=== PATIENT | female | born 1960 | race Hispanic/Latino ===

== ENCOUNTER 2018-01-05 17:46 | Emergency (ER) | payer MEDICARE, OTHER ==
[~2018-01-05] VITALS: Ht 167.6 cm; Wt 92.1 kg
[~2018-01-05 17:46] MED LIST: ASPIRIN EC81 MG PO; ATORVASTATIN CA20 MG PO; ATROVENT HFA12.9 GM INH; COLACE100 MG PO; CYCLOBENZAPRINE10 MG PO; GABAPENTIN100 MG PO; GABAPENTIN400 MG PO; GUAIFENESIN-DM S5 ML PO; IBUPROFEN400 MG PO; LEVAQUIN500 MG PO; LISINOPRIL10 MG PO; LORATADINE10 MG PO; LYRICA75 MG PO; NICODERM CQ1 EAC2 TOP; NOVOLIN N100 UNIT/1 SC; OMEPRAZOLE40 MG; PREDNISONE20 MG PO; ROPINIROLE HC0.25 MG PO; SENNA LAXATIVE8.6 MG PO; TESSALON PERLE100 MG PO; TRAZODONE HCL100 MG PO; ULTRAM50 MG PO
[2018-01-05 21:43] LABS: ALBUMIN 3.7 g/dL (3.5-5.0); ALBUMIN/GLOBULIN RATIO 0.8 (0.8-2.0); ANION GAP 17.8 mmol/L (8-16); CALCIUM 9.2 mg/dL (8.4-10.2); CREATININE, SERUM 0.97 mg/dL (0.57-1.11); POTASSIUM 3.8 mmol/L (3.5-5.1)
[2018-01-05] MEDS ORDERED: HYDROMORPHONE 1MG/1ML INJ IV STA (22:23)
[2018-01-05] MEDS ORDERED: ONDANSETRON HCL INJ 2 MG/ML VIAL IV STA (22:23)
[2018-01-05] MEDS ORDERED: CLINDAMYCIN PHOS 900MG/ D5W 50 50 ML IV ONE (22:30)
[2018-01-05] MEDS ORDERED: INSULIN REGULAR, HUMAN 100 UNIT/1 ML 3ML VIAL IV ONE (22:30)
[2018-01-05] MEDS ORDERED: SODIUM CHLORIDE 0.9% 1000ML 1,000 ML IV SCH (22:30)
--- NOTE | 2018-01-05 22:30 | Diagnostic Imaging Report ---
FOOT LEFT COMPLETE, LOWER LEG RIGHT Comparison: None Clinical history: Left foot and right leg pain, concern for osteomyelitis Findings: Left foot: Mild sclerosis of the base of the first proximal phalanx which may be degenerative. No acute fracture or dislocation. No evidence of bony destruction or focal soft tissue abnormality. Right tibia and fibula: No acute fracture or dislocation. No bony destruction. Minimal diffuse soft tissue swelling. Impression: 1. No radiographic evidence of acute osteomyelitis. There is ongoing clinical concern, recommend nonemergent MRI with and without IV contrast. Signed by: Dr Merlene Hunt MD on 01/05/2018 10:26 PM
[2018-01-05 22:40] LABS: BASOPHILS # (AUTO) 0.1 (0.0-0.1); BASOPHILS % 0.8 % (0.0-1.0); EOSINOPHILS # (AUTO) 0.2 (0.0-0.4); EOSINOPHILS % 2.1 % (0.0-6.0); HEMATOCRIT 44.6 % (34.2-44.1); HEMOGLOBIN 15.5 g/dL (12.0-16.0); LYMPHOCYTES % 32.7 % (18.0-39.1); MEAN CORPUSCULAR HEMOGLOBIN 31.1 pg (28-32); MEAN CORPUSCULAR HGB CONC 34.8 g/dL (31-35); MEAN CORPUSCULAR VOLUME 89.4 fL (81-99); MONOCYTES # (AUTO) 0.4 (0.2-0.8); MONOCYTES % 4.4 % (4.4-11.3); NEUTROPHILS # (AUTO) 5.4 (2.1-6.9); NEUTROPHILS % 59.6 % (38.7-80.0); PLATELET COUNT 166 x10e3/uL (140-360); RED BLOOD COUNT 4.99 x10e6/uL (3.6-5.1); RED CELL DISTRIBUTION WIDTH 12.9 % (11.7-14.4)
[2018-01-05 22:50] LABS: INR 0.98; PROTHROMBIN TIME 12.2 seconds (11.9-14.5)
[2018-01-06 01:03] VITALS: BP 118/74
== END 2018-01-06 01:13 | disposition home or self-care (01) ==
LOC: ER 17:46
DX: M25.571 Pain in right ankle and joints of right foot (principal); L03.115 Cellulitis of right lower limb; R26.2 Difficulty in walking, not elsewhere classified; E11.621 Type 2 diabetes mellitus with foot ulcer; L97.429 Non-pressure chronic ulcer of left heel and midfoot with unspecified severity; L97.319 Non-pressure chronic ulcer of right ankle with unspecified severity
CPT/HCPCS: 36415; 73590; 73630; 80053; 82948; 85025; 85610; 85730; 87040; 99284; J1170; J2405; J7030

== ENCOUNTER 2018-09-01 18:08 | Inpatient (IN) | payer MEDICARE ==
[~2018-09-01] VITALS: Ht 167.6 cm; Wt 94.4 kg
[2018-09-01] MEDS ORDERED: HYDROMORPHONE 1MG/1ML INJ IV STA (21:15)
[2018-09-01] MEDS ORDERED: SODIUM CHLORIDE 0.9% 1000ML 1,000 ML IV STA (21:15)
[2018-09-01] MEDS ORDERED: ONDANSETRON HCL INJ 2 MG/ML VIAL IV STA (21:15)
[2018-09-01] MEDS ORDERED: PANTOPRAZOLE 40 MG 10ML VIAL IV STA (21:15)
[2018-09-01 21:43] LABS: BASOPHILS # (AUTO) 0.1 (0.0-0.1); BASOPHILS % 0.6 % (0.0-1.0); EOSINOPHILS # (AUTO) 0.3 (0.0-0.4); EOSINOPHILS % 2.2 % (0.0-6.0); HEMATOCRIT 40.2 % (34.2-44.1); HEMOGLOBIN 13.5 g/dL (12.0-16.0); LYMPHOCYTES # (AUTO) 2.9 (1.0-3.2); LYMPHOCYTES % 20.3 % (18.0-39.1); MEAN CORPUSCULAR HEMOGLOBIN 31.3 pg (28-32); MEAN CORPUSCULAR HGB CONC 33.6 g/dL (31-35); MEAN CORPUSCULAR VOLUME 93.1 fL (81-99); MONOCYTES # (AUTO) 0.6 (0.2-0.8); MONOCYTES % 4.4 % (4.4-11.3); NEUTROPHILS # (AUTO) 10.2 (2.1-6.9); NEUTROPHILS % 71.9 % (38.7-80.0); PLATELET COUNT 244 x10e3/uL (140-360); RED BLOOD COUNT 4.32 x10e6/uL (3.6-5.1)
[2018-09-01 21:54] LABS: INR 0.87; PROTHROMBIN TIME 12.6 seconds (11.9-14.5)
[2018-09-01 21:55] LABS: PARTIAL THROMBOPLASTIN TIME 29.2 seconds (23.8-35.5)
[2018-09-01] MEDS ORDERED: HYDROMORPHONE 2MG/ML 2 MG/ML ML ONE (21:56)
[2018-09-01 22:04] LABS: ALANINE AMINOTRANSFERASE 13 IU/L (0-55); ALBUMIN 3.2 g/dL (3.5-5.0); ALBUMIN/GLOBULIN RATIO 0.6 (0.8-2.0); ALKALINE PHOSPHATASE 91 IU/L (40-150); ANION GAP 15.3 mmol/L (8-16); BLOOD UREA NITROGEN 18 mg/dL (7-26); BUN/CREATININE RATIO 21 (6-25); CALCIUM 9.5 mg/dL (8.4-10.2); CARBON DIOXIDE 27 mmol/L (22-29); CHLORIDE 98 mmol/L (98-107); CREATINE KINASE 37 IU/L (29-168); CREATININE, SERUM 0.85 mg/dL (0.57-1.11); EST GLOMERULAR FILTRATION RATE > 60 ML/MIN (60-); GLUCOSE 319 mg/dL (74-118); MAGNESIUM 1.9 MG/DL (1.3-2.1); POTASSIUM 3.3 mmol/L (3.5-5.1); SODIUM 137 mmol/L (136-145)
[2018-09-01 22:14] LABS: B-TYPE NATRIURETIC PEPTIDE2 98.1 pg/mL (0-100)
--- NOTE | 2018-09-01 23:11 | Diagnostic Imaging Report ---
EXAM: CHEST SINGLE (PORTABLE), AP 1 view INDICATION: Second toe necrosis COMPARISON: None FINDINGS: LINES/TUBES: None LUNGS: No consolidations or edema. PLEURA: No effusions or pneumothorax. HEART AND MEDIASTINUM: Normal size and contour. BONES AND SOFT TISSUES: No acute findings. IMPRESSION: No acute thoracic abnormality. Signed by: Dr. Analia Alicea M.D. on 09/01/2018 11:08 PM
--- NOTE | 2018-09-01 23:22 | Diagnostic Imaging Report ---
EXAM: LOWER LEG RIGHT, AP and lateral INDICATION: Right second toe necrosis COMPARISON: None FINDINGS: BONES: No acute fractures. JOINTS: No malalignment. SOFT TISSUES: Normal IMPRESSION: Normal appearance of right tibia and fibula. Signed by: Dr. Analia Alicea M.D. on 09/01/2018 11:18 PM
--- NOTE | 2018-09-01 23:23 | Diagnostic Imaging Report ---
EXAM: FOOT RIGHT COMPLETE, AP, lateral and oblique INDICATION: Second toe necrosis COMPARISON: None FINDINGS: BONES: No acute fractures. JOINTS: No malalignment. SOFT TISSUES: Soft tissue swelling of the second digit. IMPRESSION: No radiographic evidence of osteomyelitis. Soft tissue swelling of the second digit. Signed by: Dr. Analia Alicea M.D. on 09/01/2018 11:20 PM
[2018-09-01] MEDS ORDERED: POTASSIUM CHLORIDE 20 MEQ TAB CR PO STA (23:53)
[2018-09-02] VITALS (8 sets, daily range): BP systolic 101–133; BP diastolic 57–71
[2018-09-02] MEDS ORDERED: DEXTROSE 50% SYRINGE 50 ML IV PRN (00:30)
[2018-09-02] MEDS ORDERED: ASPIRIN 81 MG CHEW TAB PO ONE (00:45)
[2018-09-02] MEDS ORDERED: HEPARIN SOD (PORCINE) 5,000 UNIT/ML VIAL IV ONE (00:45)
[2018-09-02] MEDS: PIPER-TAZ 3.375 GM 50 ML IV SCH ×4 (01:32→17:05)
[2018-09-02] MEDS: HEPARIN 25,000U/0.45% NS 250ML 25,000 UNIT in SODIUM CHLORIDE 0.9% 250ML 0 ML IV SCH (01:53)
[2018-09-02] MEDS: ONDANSETRON HCL INJ 2 MG/ML VIAL IV PRN ×2 (02:30→06:34)
[2018-09-02] MEDS: HYDROMORPHONE 2MG/ML 2 MG/ML ML IV PRN ×5 (02:30→21:05)
[2018-09-02] MEDS: VANCOMYCIN 1GM/NS 250 ML 250 ML IV SCH ×3 (02:46→21:15)
[2018-09-02] MEDS ORDERED: SODIUM CHLORIDE 0.9% 250ML 250 ML ONE (06:06)
[2018-09-02 06:53] LABS: BASOPHILS # (AUTO) 0.1 (0.0-0.1); BASOPHILS % 0.5 % (0.0-1.0); EOSINOPHILS # (AUTO) 0.4 (0.0-0.4); EOSINOPHILS % 3.2 % (0.0-6.0); HEMATOCRIT 35.5 % (34.2-44.1); HEMOGLOBIN 12.1 g/dL (12.0-16.0); LYMPHOCYTES # (AUTO) 3.3 (1.0-3.2); LYMPHOCYTES % 29.9 % (18.0-39.1); MEAN CORPUSCULAR HEMOGLOBIN 32.2 pg (28-32); MEAN CORPUSCULAR HGB CONC 34.1 g/dL (31-35); MEAN CORPUSCULAR VOLUME 94.4 fL (81-99); MONOCYTES # (AUTO) 0.4 (0.2-0.8); MONOCYTES % 3.9 % (4.4-11.3); NEUTROPHILS # (AUTO) 6.8 (2.1-6.9); PLATELET COUNT 189 x10e3/uL (140-360); RED BLOOD COUNT 3.76 x10e6/uL (3.6-5.1); RED CELL DISTRIBUTION WIDTH 13.9 % (11.7-14.4)
[2018-09-02 07:12] LABS: ALANINE AMINOTRANSFERASE 10 IU/L (0-55); ALBUMIN 2.6 g/dL (3.5-5.0); ALBUMIN/GLOBULIN RATIO 0.6 (0.8-2.0); ALKALINE PHOSPHATASE 77 IU/L (40-150); ANION GAP 10.7 mmol/L (8-16); BLOOD UREA NITROGEN 15 mg/dL (7-26); BUN/CREATININE RATIO 19 (6-25); CALCIUM 8.9 mg/dL (8.4-10.2); CARBON DIOXIDE 28 mmol/L (22-29); CHLORIDE 99 mmol/L (98-107); CREATININE, SERUM 0.81 mg/dL (0.57-1.11); EST GLOMERULAR FILTRATION RATE > 60 ML/MIN (60-); GLUCOSE 337 mg/dL (74-118); POTASSIUM 3.7 mmol/L (3.5-5.1); SODIUM 134 mmol/L (136-145)
[2018-09-02 07:27] LABS: CREATINE KINASE 30 IU/L (29-168)
[2018-09-02 07:54] LABS: CHOL/HDL RATIO 3.3 (3.0-3.6)
--- NOTE | 2018-09-02 08:26 | History and Physical ---
PRIMARY CARE PHYSICIAN: Physician at [facility]. CHIEF COMPLAINT: Right foot 2nd toe pain and color changes. HISTORY OF PRESENT ILLNESS: This is a 58-year-old woman with a history of diabetes mellitus and necrotic ulcer to the right midcalf, now developing purple and black changes to the right foot 2nd toe ongoing for the past 7-10 days with increased pain. She went to her primary care doctor on Friday, who gave her a penicillin intramuscular injection and oral amoxicillin and sent home, but due to worsening conditions and pain, the patient came to the hospital for further evaluation and management. PAST MEDICAL HISTORY: Diabetes mellitus, diabetes related peripheral vascular disease, congestive heart failure, type unknown, diabetic neuropathy, stroke with residual left-sided weakness and use of a cane, cigarette use, hyperlipidemia, degenerative joint disease of the lumbosacral spine, chronic pain disorder. PAST SURGICAL HISTORY: Back. ALLERGIES: PER ELECTRONIC MEDICAL RECORDS. FAMILY HISTORY/SOCIAL HISTORY: Patient is . She has 3 children. No alcohol or illicits. She continues to smoke cigarettes. MEDICATIONS: Per electronic medical record. REVIEW OF SYSTEMS: Denies any dizziness, chest pain, shortness of breath. Denies any fever, sweats, nausea, vomiting, diarrhea, headache, back pain. PHYSICAL EXAMINATION VITAL SIGNS: Have been reviewed. GENERAL: A tired-appearing woman resting in bed. HEENT: Anicteric. CARDIOVASCULAR: Normal S1 and S2. LUNGS: Moderate breath sounds. ABDOMEN: Soft, nontender and nondistended. EXTREMITIES: She has right foot with 2nd toe black in color and tender. She has dorsalis pedis pulses nonpalpable, but the foot is warm. SKIN: Dry. PSYCHIATRIC: Flat affect. NEUROLOGIC: Alert and oriented times 3. Moving all extremities. LABS: Reviewed. MEDICATIONS: Reviewed. ASSESSMENT AND PLAN: This is a 58-year-old woman with: 1. Gangrene of the right foot, 2nd toe secondary to diabetes. 2. Diabetes mellitus, type 2. 3. Peripheral vascular disease secondary to diabetes mellitus, type 2. 4. Hypertension. 5. Diabetic neuropathy. 6. Advanced chronic obstructive pulmonary disease. 7. History of stroke. 8. Continued cigarette use. 9. Obesity. 10. Ambulatory dysfunction secondary to stroke. PLAN 1. Continue broad-spectrum antibiotics of vancomycin and Zosyn. 2. Podiatry consultation. 3. Cardiovascular evaluation of the lower extremity. 4. Continue home medications. 5. Continue with heparin drip. 6. Use Pepcid while on heparin. 7. Obtain hemoglobin A1c and lipid panel. 8. Obtain sed rate and CRP. Job#: [id number] TATYANA
[2018-09-02] MEDS: ASPIRIN 81 MG ENTERIC COATED PO SCH (08:34)
[2018-09-02] MEDS: FAMOTIDINE 20 MG/2 ML VIAL IV SCH ×2 (08:34→21:15)
[2018-09-02] MEDS: GABAPENTIN 100 MG CAP PO SCH ×2 (08:34→17:05)
[2018-09-02] MEDS: LISINOPRIL 10 MG TAB PO SCH (08:35)
[2018-09-02] MEDS: ROPINIROLE HCL 0.25 MG TAB PO SCH (08:35)
[2018-09-02] MEDS: INSULIN REGULAR, HUMAN 100 UNIT/1 ML 3ML VIAL SQ SCH ×4 (09:01→21:00)
[2018-09-02] MEDS: DOCUSATE SODIUM 100 MG CAP PO SCH ×2 (09:33→17:05)
[2018-09-02 20:33] LABS: CREATINE KINASE 29 IU/L (29-168)
--- NOTE | 2018-09-02 20:33 | Consultation ---
DATE OF CONSULTATION: September 02, 2018 CARDIOLOGY CONSULTATION REASON FOR CONSULTATION: Right lower extremity gangrene and peripheral arterial disease. CHIEF COMPLAINT: My right foot hurts. HISTORY OF PRESENT ILLNESS: This is a 58-year-old female with history of diabetes and necrotic ulcer of the right foot. She also has history of peripheral arterial disease status post atherectomy and WOOD[employer] of her right lower extremity last year presenting with peripheral embolic changes of her right foot, 2 toe, for the past 7 to 10 days with worsening pain. PAST MEDICAL HISTORY: 1. Diabetes. 2. Peripheral arterial disease secondary to diabetes. 3. Congestive heart failure. 4. Neuropathy. 5. History of CVA. 6. Smoking. 7. Hyperlipidemia. 8. Chronic pain. FAMILY HISTORY: Denies family history of early CAD or sudden cardiac . SOCIAL HISTORY: Patient is a current smoker. No alcohol or illicit drug use. REVIEW OF SYSTEMS: Denies any dizziness, chest pain, shortness of breath, orthopnea or PND. Denies any fevers, chills, nausea, vomiting, diarrhea, headache or back pain. A 10-point review of systems is otherwise negative other than what is mentioned in history of present illness. PHYSICAL EXAMINATION: VITALS: Were reviewed as documented in the chart. CARDIOVASCULAR: Regular rate and rhythm. No murmurs, rubs or gallops. PMI is nondisplaced. Palpable carotid pulses. Palpable radial pulses. Lower extremity pulses are not palpable bilaterally. EXTREMITIES: Bilateral lower extremities with varicosities. They are warm to touch. The right foot middle toe is black and gangrenous. LUNGS: Clear to auscultation bilaterally. No respiratory distress. ABDOMEN: Obese, soft, nontender and nondistended. NEURO AND PSYCH: Alert and oriented to person, place and time. Normal affect. MEDICATIONS: Reviewed. LABORATORY DATA: Reviewed. IMAGING DATA: Reviewed. ASSESSMENT AND PLAN: 1. 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 2. Critical limb ischemia of the right foot, second toe. 3. Diabetic foot ulcer. 4. Diabetes. 5. Hypertension. 6. Cerebrovascular accident. 7. Obesity. 8. Hyperlipidemia. 9. Smoking. PLAN: Will obtain arterial Dopplers to assess circulation in the right lower extremity, likely needs repeat angiogram and possible intervention. Will use the arterial Dopplers to guide treatment. Wound care per podiatry. Antibiotics per primary team. Continue IV heparin and aspirin. Will plan for peripheral angiogram likely tomorrow. Please keep n.p.o. after midnight. Thank you for this consult. Will continue to follow. Job#: [id number] LOKI
[2018-09-02] MEDS ORDERED: NON-FORMULARY MEDICATION (Trazodone Hcl 100 MG) PO SCH (21:00)
[2018-09-02] MEDS: TRAZODONE HCL 50 MG TAB PO SCH (21:15)
[2018-09-03] VITALS (7 sets, daily range): BP systolic 105–133; BP diastolic 58–70
[2018-09-03] MEDS: PIPER-TAZ 3.375 GM 50 ML IV SCH ×4 (01:15→17:37)
[2018-09-03] MEDS: HYDROMORPHONE 2MG/ML 2 MG/ML ML IV PRN ×6 (01:16→21:42)
[2018-09-03] MEDS: HEPARIN 25,000U/0.45% NS 250ML 25,000 UNIT in SODIUM CHLORIDE 0.9% 250ML 0 ML IV SCH (02:45)
[2018-09-03 07:03] LABS: BASOPHILS # (AUTO) 0.1 (0.0-0.1); BASOPHILS % 0.5 % (0.0-1.0); EOSINOPHILS # (AUTO) 0.3 (0.0-0.4); EOSINOPHILS % 2.3 % (0.0-6.0); HEMATOCRIT 36.3 % (34.2-44.1); HEMOGLOBIN 12.1 g/dL (12.0-16.0); LYMPHOCYTES # (AUTO) 2.1 (1.0-3.2); LYMPHOCYTES % 18.5 % (18.0-39.1); MEAN CORPUSCULAR HEMOGLOBIN 31.5 pg (28-32); MEAN CORPUSCULAR HGB CONC 33.3 g/dL (31-35); MEAN CORPUSCULAR VOLUME 94.5 fL (81-99); MONOCYTES # (AUTO) 0.5 (0.2-0.8); MONOCYTES % 4.8 % (4.4-11.3); NEUTROPHILS # (AUTO) 8.2 (2.1-6.9); NEUTROPHILS % 73.3 % (38.7-80.0); PLATELET COUNT 208 x10e3/uL (140-360); RED BLOOD COUNT 3.84 x10e6/uL (3.6-5.1)
[2018-09-03 07:11] LABS: ANION GAP 14.8 mmol/L (8-16); BLOOD UREA NITROGEN 14 mg/dL (7-26); BUN/CREATININE RATIO 18 (6-25); CALCIUM 8.9 mg/dL (8.4-10.2); CARBON DIOXIDE 24 mmol/L (22-29); CHLORIDE 99 mmol/L (98-107); CREATININE, SERUM 0.77 mg/dL (0.57-1.11); EST GLOMERULAR FILTRATION RATE > 60 ML/MIN (60-); GLUCOSE 227 mg/dL (74-118); POTASSIUM 3.8 mmol/L (3.5-5.1); SODIUM 134 mmol/L (136-145)
[2018-09-03] MEDS: FAMOTIDINE 20 MG/2 ML VIAL IV SCH ×2 (08:56→21:42)
[2018-09-03] MEDS: VANCOMYCIN 1GM/NS 250 ML 250 ML IV SCH ×2 (08:56→21:42)
[2018-09-03] MEDS: ROPINIROLE HCL 0.25 MG TAB PO SCH (08:57)
[2018-09-03] MEDS: GABAPENTIN 100 MG CAP PO SCH ×2 (08:57→17:37)
[2018-09-03] MEDS: ASPIRIN 81 MG ENTERIC COATED PO SCH (08:57)
[2018-09-03] MEDS: DOCUSATE SODIUM 100 MG CAP PO SCH ×2 (08:57→17:37)
[2018-09-03] MEDS: LISINOPRIL 10 MG TAB PO SCH (08:57)
[2018-09-03] MEDS: INSULIN REGULAR, HUMAN 100 UNIT/1 ML 3ML VIAL SQ SCH ×4 (09:37→21:44)
[2018-09-03 10:31] LABS: BILIRUBIN,URINE NEGATIVE (NEGATIVE); CLARITY,URINE SL CLOUDY (CLEAR); COLOR,URINE YELLOW (YELLOW); LEUKOCYTE ESTERASE ,URINE NEGATIVE (NEGATIVE); NITRITE,URINE NEGATIVE (NEGATIVE); PROTEIN,URINE DIPSTICK 2+ (NEGATIVE)
[2018-09-03 10:32] LABS: KETONES,URINE NEGATIVE (NEGATIVE); URINE UROBILINOGEN 0.2 mg/dL (0.2 - 1)
[2018-09-03 10:54] LABS: EPITHELIAL CELLS,URINE FEW /LPF; RBC,URINE 0-5 /HPF (0-5); TRANSITIONAL EPI CELLS,URINE FEW
--- NOTE | 2018-09-03 13:59 | Consultation ---
DATE OF CONSULTATION: September 03, 2018 PODIATRY CONSULTATION REASON FOR CONSULTATION: Gangrenous digit right foot. HISTORY OF PRESENT ILLNESS: Mrs. Gaona is a pleasant female 58 years of age, admitted secondary to the aforementioned with erythema and significant amount of pain associated to the right foot. She was seen by the primary care physician at [facility], was placed on p.o. antibiotics, was given also a penicillin injection in the office due to significant amount of pain, and presented to the ED at [facility] and was admitted for further workup. It appears that she does have a history also of vasculopathic extremities. PAST MEDICAL HISTORY: Diabetes, PAD, CHF, neuropathy, history of CVA, smoking, hyperlipidemia. SURGICAL HISTORY: Presumable previous atherectomies per other notes. FAMILY HISTORY: CAD. SOCIAL HISTORY: Smoking. ELEVEN-POINT REVIEW OF SYSTEMS: A significant amount of pain to the right foot. Denies any nausea, vomiting, fever, chills, shortness of breath, chest pain, palpitations, hematuria, constipation, diarrhea. PHYSICAL EXAMINATION GENERAL: AO x3. NAD. HEENT: Normocephalic, atraumatic, anicteric. ABDOMEN: Soft, nontender, nondistended. RESPIRATORY: Symmetrical expansion. No distress. PSYCHIATRIC: Normal affect. EXTREMITIES: Tenderness upon palpation right foot with erythema associated to the same. Distal forefoot erythema is noted. Pulses faint. Second digit is completely necrotic, gangrenous, and stages of mummification are noted as well. DIAGNOSTICS AND LAB DATA: X-rays were negative for osteomyelitis nor soft-tissue emphysema. Upon admission WBC is 14.6, currently 11.14. Hemoglobin A1c at 8 or higher than 8. Blood glucoses are 200s. ASSESSMENT: Diabetic patient with peripheral arterial disease, concomitant cellulitis right foot, concomitant gangrene right second digit. PLAN: At this point, needs extensive vascular workup. Further recommendations to follow subsequent vascular workup. Bare minimum, looking at digit amputation, perhaps transmetatarsal amputation, perhaps even more proximal amputations depending on her vascular status. Dr. Carrasco of cardiology has seen and evaluated the patient and currently under the workup for perhaps angiogram and possible intervention. In the interim, local wound care. Job#: [id number] EV
--- NOTE | 2018-09-03 15:47 | Progress Note ---
DATE: September 03, 2018 CARDIOLOGY PROGRESS NOTE SUBJECTIVE: The patient denies chest pain or shortness of breath. Her main complaint is pain in her right foot. OBJECTIVE VITALS: Temperature 100.6 degrees, pulse 82, respiratory rate 28, blood pressure 105/69, oxygen saturation 98% on room air. GENERAL: Awake, alert and in no acute distress. LUNGS: Clear to auscultation bilaterally. No wheezes or crackles. CARDIOVASCULAR: Normal rate. Regular rhythm. No murmur. Normal S1 and S2. ABDOMEN: Soft and nontender. EXTREMITIES: Erythema and swelling of the right lower extremity with gangrenous changes to the right 2nd toe. CARDIAC MEDICATIONS 1. Heparin drip. 2. Lisinopril 40 mg p.o. daily. 3. Aspirin 81 mg p.o. daily. LABS: WBC 11.14, hemoglobin 12.1, hematocrit 36.3, and platelets 208,000. Telemetry is normal sinus rhythm. IMPRESSION 1. Peripheral arterial disease: Status post atherectomy and percutaneous transluminal angioplasty of the right lower extremity in 2017. 2. Limb ischemia of the right foot. 3. Cellulitis and gangrene of the right 2nd digit. 4. Diabetes. 5. Hypertension. 6. History of cerebrovascular accident. 7. Hyperlipidemia. 8. Smoking. 9. Obesity. RECOMMENDATIONS: Plan for peripheral angiogram later this afternoon. Continue current cardiac medications in the meantime. Wound care per podiatry. Antibiotics per primary service. Further recommendations pending angiogram results. Thank you for this consult. We will continue to follow. Job#: [id number] KS
[2018-09-03] MEDS: TRAZODONE HCL 50 MG TAB PO SCH (21:42)
[2018-09-04] VITALS (20 sets, daily range): BP systolic 105–177; BP diastolic 52–106
[2018-09-04] MEDS: PIPER-TAZ 3.375 GM 50 ML IV SCH ×4 (00:17→17:44)
[2018-09-04] MEDS ORDERED: SODIUM CHLORIDE 0.9% 250ML 250 ML ONE (00:20)
[2018-09-04] MEDS: HEPARIN 25,000U/0.45% NS 250ML 25,000 UNIT in SODIUM CHLORIDE 0.9% 250ML 0 ML IV SCH (00:23)
[2018-09-04] MEDS: HYDROMORPHONE 2MG/ML 2 MG/ML ML IV PRN ×5 (01:58→20:58)
[2018-09-04] MEDS ORDERED: HEPARIN SOD/SOD CHLORIDE 2,000 ML ONE (06:41)
[2018-09-04] MEDS ORDERED: FENTANYL CITRATE/PF 100MCG/2 ML INJ ONE (06:41)
[2018-09-04] MEDS ORDERED: IOPAMIDOL 300MG/ML 100 ML INFUS..BTL IV ONE ×2 (06:41→07:31)
[2018-09-04] MEDS ORDERED: HEPARIN SOD (PORCINE) 1000 UNIT/ML 30ML ONE (06:41)
[2018-09-04] MEDS ORDERED: MIDAZOLAM HCL 2 MG/2 ML VIAL ONE ×2 (06:41→07:42)
[2018-09-04] MEDS ORDERED: SODIUM CHLORIDE 0.9% 1000ML 1,000 ML ONE ×2 (06:42→07:35)
[2018-09-04] MEDS ORDERED: NITROGLYCERIN/D5W 200 MCG/ML 250 ML ONE (06:42)
[2018-09-04] MEDS: INSULIN REGULAR, HUMAN 100 UNIT/1 ML 3ML VIAL SQ SCH ×4 (07:30→21:00)
[2018-09-04] MEDS ORDERED: VERAPAMIL HCL 2.5 MG/ML 2 ML VIAL ONE (07:35)
[2018-09-04] MEDS ORDERED: PRASUGREL 10 MG TAB ONE (08:02)
[2018-09-04] MEDS: ASPIRIN 81 MG ENTERIC COATED PO SCH (09:00)
[2018-09-04] MEDS: FAMOTIDINE 20 MG/2 ML VIAL IV SCH ×2 (09:00→20:55)
[2018-09-04] MEDS: DOCUSATE SODIUM 100 MG CAP PO SCH ×2 (09:00→17:44)
[2018-09-04] MEDS: GABAPENTIN 100 MG CAP PO SCH ×2 (09:00→17:44)
[2018-09-04] MEDS: VANCOMYCIN 1GM/NS 250 ML 250 ML IV SCH (09:00)
[2018-09-04] MEDS: ROPINIROLE HCL 0.25 MG TAB PO SCH (09:00)
[2018-09-04] MEDS: LISINOPRIL 10 MG TAB PO SCH (09:00)
--- NOTE | 2018-09-04 09:09 | Operative Report ---
DATE OF PROCEDURE: September 04, 2018 INDICATIONS: Peripheral arterial disease with critical limb ischemia and gangrene of the right lower extremity. PROCEDURES PERFORMED 1. Abdominal aorta catheter placement and abdominal aortogram. 2. Bilateral lower extremity angiograms. 3. Third-order catheter placement from the left femoral artery to the right superficial femoral artery. 4. Additional third-order catheter placement from the left femoral artery to the right anterior tibial artery. 5. Atherectomy and drug-coated balloon angioplasty of the right femoral artery. 6. Secondary thrombectomy of the right femoral artery. 7. Atherectomy and drug-coated balloon angioplasty of the right anterior tibial artery. COMPLICATIONS: None. RECOMMENDATIONS: Dual-antiplatelet therapy for life. Staged intervention on the left femoral and anterior tibial arteries. BLOOD LOSS: 5 mL. Access obtained in the left femoral artery. A 6-Urdu sheath was placed. Abdominal aortogram demonstrated widely patent abdominal aorta and renal arteries. Mild disease in the iliacs without critical stenosis or occlusions. The bilateral femoral arteries proximally had 70% stenosis. Distal vessels could not be visualized. The catheter was then advanced from the left femoral artery to the right superficial femoral artery. Previously placed stent in the right femoral artery had 99% in-stent restenosis. Distal vessels could not be seen. The catheter was then advanced into the right anterior tibial artery. The posterior tibial and peroneal arteries were completely occluded. The proximal right anterior tibial artery had 99% subtotal occlusion with single vessel runoff. The left femoral artery had distal 90% stenosis and tandem 90% stenosis in the left anterior tibial arteries. A decision was made to intervene on the right femoral and anterior tibial arteries. The patient received 10,000 with intra-arterial heparin. The sheath was exchanged to a 45-cm sheath and advanced from the left femoral artery to the right superficial femoral artery. The lesions were crossed using a Glidewire. The wire was exchanged to a ViperWire. Orbital atherectomy using a 1.25-mm Meckling was performed in the femoral artery with large amounts of visible thrombus necessitating secondary manual aspiration thrombectomy with resolution of thrombus. Balloon angioplasty with 6-mm balloon was performed. Excellent end result. Similar atherectomy was performed at the ostium of the right anterior tibial artery, and 4 mm drug-coated balloon angioplasty was performed. Excellent end result. Final angiography demonstrated single vessel runoff to the right foot with less than 10% residual stenosis in both femoral and popliteal arteries. The sheath was secured in place. ACT was checked. Patient was transferred to the floor in stable condition for manual removal of the sheath with instructions as listed above. Job#: [id number] TATYANA
--- NOTE | 2018-09-04 09:14 | Consultation ---
DATE OF CONSULTATION: September 04, 2018 Ms. Gaona continues to have pain in her right leg. PHYSICAL EXAMINATION VITALS: Afebrile. Heart rate 84, blood pressure 172/70. CARDIOVASCULAR: Regular rhythm. Systolic murmur. LUNGS: Clear to auscultation bilaterally. Pedal pulses are absent. Angiography of the right leg demonstrated significant disease in the femoral and anterior tibial arteries with single vessel runoff. Successful intervention was performed. ASSESSMENT: Peripheral arterial disease with critical limb ischemia of the right lower extremity, status post atherectomy and balloon angioplasty of the right femoral and anterior tibial arteries. with excellent angiographic result. RECOMMENDATIONS: Continue dual-antiplatelet therapy for life. From the cardiac and vascular standpoint, Ms. Gaona is stable for discharge. She will require staged intervention on her left femoral artery. I thank Dr. Houser for this consultation. Job#: [id number] TATYANA
[2018-09-04] MEDS ORDERED: HYDROMORPHONE 2MG/ML 2 MG/ML ML ONE (11:08)
[2018-09-04] MEDS: TRAZODONE HCL 50 MG TAB PO SCH ×2 (20:50→21:00)
[2018-09-05] VITALS (8 sets, daily range): BP systolic 115–134; BP diastolic 55–78
[2018-09-05] MEDS: HYDROMORPHONE 2MG/ML 2 MG/ML ML IV PRN ×6 (00:08→22:49)
[2018-09-05] MEDS: VANCOMYCIN 1GM/NS 250 ML 250 ML IV SCH ×3 (00:08→21:00)
[2018-09-05] MEDS: PIPER-TAZ 3.375 GM 50 ML IV SCH ×5 (00:12→23:40)
[2018-09-05] MEDS ORDERED: SODIUM CHLORIDE 0.9% 250ML 250 ML ONE (06:30)
[2018-09-05] MEDS: INSULIN REGULAR, HUMAN 100 UNIT/1 ML 3ML VIAL SQ SCH ×4 (07:30→21:00)
[2018-09-05] MEDS: DOCUSATE SODIUM 100 MG CAP PO SCH ×2 (09:20→17:44)
[2018-09-05] MEDS: LISINOPRIL 10 MG TAB PO SCH (09:20)
[2018-09-05] MEDS: ASPIRIN 81 MG ENTERIC COATED PO SCH (09:20)
[2018-09-05] MEDS: GABAPENTIN 100 MG CAP PO SCH ×2 (09:20→17:44)
[2018-09-05] MEDS: FAMOTIDINE 20 MG/2 ML VIAL IV SCH ×2 (09:20→21:00)
[2018-09-05] MEDS: ROPINIROLE HCL 0.25 MG TAB PO SCH (09:20)
[2018-09-05] MEDS: TRAMADOL HCL 50 MG TAB PO PRN (14:56)
--- NOTE | 2018-09-05 15:11 | Progress Note ---
DATE: September 05, 2018 CARDIOLOGY PROGRESS NOTE SUBJECTIVE: Patient denies chest pain or shortness of breath. OBJECTIVE VITAL SIGNS: Temperature 96.4 degrees, pulse 92, respiratory rate 20, blood pressure 134/78, oxygen saturation 95% on 2 liters nasal cannula. GENERAL: Awake, alert, in no acute distress. LUNGS: Clear to auscultation bilaterally. No wheezes or crackles. CARDIOVASCULAR: Normal rate, regular rhythm. No murmur. Normal S1 and S2. ABDOMEN: Soft, nontender. EXTREMITIES: Erythema still in the right lower extremity with gangrenous changes to the right second toe. Left groin without hematoma or bruit. CARDIAC MEDICATIONS 1. Lisinopril 40 mg p.o. daily. 2. Aspirin 81 mg p.o. daily. LABS: None today. IMPRESSION 1. Peripheral arterial disease with critical limb ischemia of the right lower extremity, status post atherectomy and balloon angioplasty of the right femoral artery and anterior tibial arteries with excellent angiographic result. 2. Cellulitis and gangrene of the right second digit. 3. Diabetes mellitus. 4. Hypertension. 5. History of cerebrovascular accident. 6. Hyperlipidemia. 7. Smoking. 8. Obesity. RECOMMENDATIONS: Continue current cardiac medications. Wound care per podiatry. Antibiotics per primary service. Start Plavix. Patient will need staged intervention of the left femoral artery at a later date. Thank you for this consult. We will continue to follow. Job#: [id number] MOE
--- NOTE | 2018-09-05 20:42 | Progress Note ---
DATE: September 03, 2018 TIME: 7:00 a.m. OVERNIGHT: No events. REVIEW OF SYSTEMS: Denies any dizziness, chest pain, shortness of breath, fever, chills, sweats, nausea, vomiting, or diarrhea. PHYSICAL EXAMINATION VITAL SIGNS: Reviewed. GENERAL: A tired-appearing woman resting in bed. HEENT: Anicteric. CARDIOVASCULAR: Normal S1 and S2. LUNGS: Moderate breath sounds. ABDOMEN: Soft, nontender. EXTREMITIES: Right foot gangrene toe black. SKIN: Dry. PSYCHIATRIC: Flat affect. LABS: Reviewed. MEDICATIONS: Reviewed. ASSESSMENT: A 58-year-old woman with; 1. Gangrene of the right foot second toe secondary to diabetes. 2. Diabetes mellitus type 2. 3. Peripheral vascular disease secondary to diabetes mellitus type 2. 4. Hypertension. 5. Diabetic neuropathy. 6. Advanced chronic obstructive pulmonary disease. 7. History of stroke. 8. Continued cigarette use. 9. Obesity. 10. Ambulatory dysfunction secondary to stroke. PLAN 1. Continue antibiotics. 2. Follow up with podiatry. 3. Follow up angiogram studies. 4. Patient received heparin drip. 5. Follow up hemoglobin A1c and lipid panel. Job#: [id number] VAS
--- NOTE | 2018-09-05 20:46 | Progress Note ---
DATE: September 04, 2018 TIME: 7:25 a.m. OVERNIGHT: No events. REVIEW OF SYSTEMS: Denies any dizziness, chest pain, shortness of breath, fever, chills sweats, nausea, vomiting, or diarrhea. PHYSICAL EXAMINATION VITAL SIGNS: Reviewed. GENERAL: A tired-appearing woman, resting in bed. HEENT: Anicteric. CARDIOVASCULAR: Normal S1 and S2. LUNGS: Moderate breath sounds. ABDOMEN: Soft, nontender. EXTREMITIES: Right foot second toe black. SKIN: Dry. PSYCHIATRIC: Flat affect. NEUROLOGIC: Alert and appropriate. LABS: Reviewed. MEDICATIONS: Reviewed. ASSESSMENT: A 58-year-old woman with; 1. Gangrene of the right foot second toe secondary to diabetes. 2. Diabetes mellitus type 2. Hemoglobin A1c was 8.8 which is uncontrolled and triglyceride 140, LDL 89. 3. Peripheral vascular disease secondary to diabetes. 4. Peripheral vascular disease secondary to cigarette use. 5. Continued cigarette use. 6. Chronic obstructive pulmonary disease. 7. History of stroke. 8. Obesity. 9. Ambulatory dysfunction. PLAN 1. Continue antibiotics. 2. Follow up podiatry. 3. Follow up cardiovascular regarding angiogram. 4. Patient received heparin. 5. Follow up closely. Job#: [id number] LPA
[2018-09-05] MEDS: ACETAMINOPHEN/CODEINE 300MG - 30MG TAB PO PRN (21:15)
[2018-09-05] MEDS: TRAZODONE HCL 50 MG TAB PO SCH ×2 (21:55→23:40)
[2018-09-06] VITALS (7 sets, daily range): BP systolic 104–142; BP diastolic 54–71
[2018-09-06] MEDS: TRAMADOL HCL 50 MG TAB PO PRN ×2 (04:00→12:30)
[2018-09-06] MEDS: HYDROMORPHONE 2MG/ML 2 MG/ML ML IV PRN ×4 (05:13→21:15)
[2018-09-06] MEDS: PIPER-TAZ 3.375 GM 50 ML IV SCH ×3 (06:01→17:46)
[2018-09-06] MEDS: INSULIN REGULAR, HUMAN 100 UNIT/1 ML 3ML VIAL SQ SCH ×4 (07:30→21:00)
[2018-09-06] MEDS ORDERED: CLOPIDOGREL BISULFATE 75 MG TAB PO SCH (09:00)
[2018-09-06] MEDS: ROPINIROLE HCL 0.25 MG TAB PO SCH (09:50)
[2018-09-06] MEDS: LISINOPRIL 10 MG TAB PO SCH (09:50)
[2018-09-06] MEDS: FAMOTIDINE 20 MG/2 ML VIAL IV SCH ×2 (09:50→20:25)
[2018-09-06] MEDS: DOCUSATE SODIUM 100 MG CAP PO SCH ×2 (09:50→17:06)
[2018-09-06] MEDS: VANCOMYCIN 1GM/NS 250 ML 250 ML IV SCH ×2 (09:50→21:00)
[2018-09-06] MEDS: ASPIRIN 81 MG ENTERIC COATED PO SCH (09:50)
[2018-09-06] MEDS: GABAPENTIN 100 MG CAP PO SCH ×2 (09:50→17:06)
--- NOTE | 2018-09-06 16:43 | Progress Note ---
DATE: September 06, 2018 INCOMPLETE DICTATION TIME: 1315. OVERNIGHT: No acute events. REVIEW OF SYSTEMS: Patient denies any chest pain, shortness of breath, dizziness, blurry vision, headache, nausea, vomiting, diarrhea, constipation, fevers, chills, . OBJECTIVE VITAL SIGNS: T 99, R 18. Dictated by: Babak Mitchell NP Job#: [id number] MOE
--- NOTE | 2018-09-06 16:54 | Progress Note ---
DATE: September 06, 2018 TIME: 1315. OVERNIGHT: No acute events. REVIEW OF SYSTEMS: Patient denies chest pain, shortness of breath, dizziness, nausea, vomiting, diarrhea, constipation, fever, chills, sweats, or blurry vision. OBJECTIVE VITAL SIGNS: T 99, P 82, R 18, BP 104/55, SpO2 of 91% on RA. GENERAL APPEARANCE: This is a tired-appearing female lying in bed. HEENT: Normocephalic without sinus tenderness, PERRLA. Nares patent. Oral mucosa moist and intact. Trachea midline without JVD. CV: S1 and S2 auscultated. Regular rate. LUNGS: Moderate breath sounds in all hernandez with poor excursion and slight expiratory rales that clear on cough. ABDOMEN: Soft, not tender, not distended. EXTREMITIES: Dressing to right foot clean, dry, and intact. SKIN: Dry. PSYCHIATRIC: Flat affect. NEUROLOGIC: Alert and oriented x 3. LABS: Reviewed. MEDICATIONS: Reviewed. ASSESSMENT AND PLAN: This is a 58-year-old woman with; 1. Gangrene to the right foot secondary to diabetes. Discussed with podiatry on this day. Possible surgical intervention per podiatry services pending tomorrow or Friday. 2. Diabetes mellitus, type 2. Hemoglobin A1c was 8.8 on admission with TG 140/LDL 89. Continue glucose management, Plavix, and aspirin. 3. Peripheral vascular disease secondary to diabetes. 4. Peripheral vascular disease secondary to cigarette use. Patient unwilling to consider cessation on this day. 5. Continued cigarette use. 6. Chronic obstructive pulmonary disease, supportive O2 as needed. 7. History of cerebrovascular accident. 8. Obesity, outpatient calorie management. 9. Ambulatory dysfunction. 10. Prophylaxis, Pepcid, ASA, mobility. 11. Disposition. Continue IV antibiotics, noted prior treatment with heparin; appreciate cardiovascular input concerning anticoagulation use prior to possible podiatry intervention tomorrow. Follow up a.m. values. Dictated by: Babak Mitchell NP Job#: [id number] KHALIDA
--- NOTE | 2018-09-06 17:30 | Progress Note ---
DATE: September 05, 2018 TIME: 07:00 a.m. OVERNIGHT: No events. REVIEW OF SYSTEMS: Denies any dizziness or chest pain. OBJECTIVE VITAL SIGNS: Reviewed. GENERAL: A tired-appearing woman resting in bed. HEENT: Normocephalic. Anicteric. CARDIOVASCULAR: Normal S1 and S2. LUNGS: Normal breath sounds. ABDOMEN: Soft and nontender. EXTREMITIES: She has right foot 2nd digit gangrenous changes. SKIN: Dry. PSYCHIATRIC: Flat affect. NEUROLOGIC: Awake and awake. LABS: Reviewed. MEDICATIONS: Reviewed. ASSESSMENT: A 58-year-old woman with: 1. Peripheral arterial disease secondary to cigarette use. 2. Peripheral arterial disease secondary to diabetes mellitus. 3. Gangrenous toe secondary to diabetes mellitus. 4. Hypertension. 5. Chronic obstructive pulmonary disease. 6. History of stroke. 7. Obesity. 8. Ambulatory dysfunction. PLAN 1. Continue broad-spectrum antibiotics. 2. Continue antiplatelet medications. 3. Podiatry intervention. 4. Hemoglobin A1c 8.8 and LDL 89. 5. Diabetes is uncontrolled. 6. Vancomycin trough 8.1 yesterday. 7. Follow up cultures, which are negative today. Job#: [id number] VAS
[2018-09-06] MEDS: ACETAMINOPHEN/CODEINE 300MG - 30MG TAB PO PRN (20:21)
[2018-09-06] MEDS: TRAZODONE HCL 50 MG TAB PO SCH (20:25)
--- NOTE | 2018-09-06 23:52 | Progress Note ---
DATE: September 06, 2018 CARDIOLOGY PROGRESS NOTE SUBJECTIVE: The patient denies chest pain or shortness of breath. OBJECTIVE VITALS: Temperature 99 degrees, pulse 82, respiratory rate 18, blood pressure 104/55, oxygen saturation 91% on room air. GENERAL: Awake, alert. No acute distress. LUNGS: Clear to auscultation bilaterally. No wheezing or crackles. CARDIOVASCULAR: Normal rate. Regular rhythm. No murmur. Normal S1, S2. ABDOMEN: Soft, nontender. EXTREMITIES: Erythema is present in the right lower extremity with gangrenous changes to the right 2nd toe. Foot is wrapped. CARDIAC MEDICATIONS 1. Plavix 75 mg p.o. daily. 2. Lisinopril 40 mg p.o. daily. 3. Aspirin 81 mg p.o. daily. LABS: None today. IMPRESSION 1. Peripheral arterial disease with critical limb ischemia in the right lower extremity, status post atherectomy and balloon angioplasty of the right femoral artery and anterior tibial arteries with excellent angiographic results. 2. Cellulitis and gangrene of the right 2nd toe. 3. Diabetes mellitus. 4. Hypertension. 5. History of cerebrovascular accident. 6. Hyperlipidemia. 7. Smoking. 8. Obesity. RECOMMENDATIONS: Wound care per podiatry. Plavix and aspirin can be stopped for amputation per podiatry request. Continue current cardiac medications. Otherwise, antibiotics per primary service. The patient will need a staged intervention of her left femoral artery at a later date. Thank you for this consult. We will continue to follow. Job#: [id number] MOR
[2018-09-07] VITALS: BP 121/67
[2018-09-07] MEDS: PIPER-TAZ 3.375 GM 50 ML IV SCH ×5 (00:45→23:46)
[2018-09-07 04:23] VITALS: BP 111/63
[2018-09-07] MEDS: HYDROMORPHONE 2MG/ML 2 MG/ML ML IV PRN ×5 (05:21→23:45)
[2018-09-07 06:00] LABS: BASOPHILS # (AUTO) 0.1 (0.0-0.1); BASOPHILS % 0.8 % (0.0-1.0); EOSINOPHILS # (AUTO) 0.4 (0.0-0.4); EOSINOPHILS % 3.8 % (0.0-6.0); HEMATOCRIT 33.5 % (34.2-44.1); HEMOGLOBIN 10.9 g/dL (12.0-16.0); LYMPHOCYTES # (AUTO) 2.4 (1.0-3.2); LYMPHOCYTES % 24.2 % (18.0-39.1); MEAN CORPUSCULAR HEMOGLOBIN 31.5 pg (28-32); MEAN CORPUSCULAR HGB CONC 32.5 g/dL (31-35); MEAN CORPUSCULAR VOLUME 96.8 fL (81-99); MONOCYTES # (AUTO) 0.5 (0.2-0.8); MONOCYTES % 5.4 % (4.4-11.3); NEUTROPHILS # (AUTO) 6.5 (2.1-6.9); NEUTROPHILS % 65.2 % (38.7-80.0); PLATELET COUNT 225 x10e3/uL (140-360); RED BLOOD COUNT 3.46 x10e6/uL (3.6-5.1); RED CELL DISTRIBUTION WIDTH 13.9 % (11.7-14.4)
[2018-09-07 06:26] LABS: ALANINE AMINOTRANSFERASE 10 IU/L (0-55); ALBUMIN 2.3 g/dL (3.5-5.0); ALBUMIN/GLOBULIN RATIO 0.4 (0.8-2.0); ALKALINE PHOSPHATASE 65 IU/L (40-150); ANION GAP 14.3 mmol/L (8-16); BLOOD UREA NITROGEN 16 mg/dL (7-26); BUN/CREATININE RATIO 19 (6-25); CARBON DIOXIDE 27 mmol/L (22-29); CHLORIDE 102 mmol/L (98-107); CREATININE, SERUM 0.86 mg/dL (0.57-1.11); EST GLOMERULAR FILTRATION RATE > 60 ML/MIN (60-); GLUCOSE 149 mg/dL (74-118); POTASSIUM 4.3 mmol/L (3.5-5.1); SODIUM 139 mmol/L (136-145)
[2018-09-07] MEDS: INSULIN REGULAR, HUMAN 100 UNIT/1 ML 3ML VIAL SQ SCH ×4 (07:30→20:37)
[2018-09-07 08:00] VITALS: BP 110/70
[2018-09-07] MEDS: ACETAMINOPHEN/CODEINE 300MG - 30MG TAB PO PRN ×2 (08:31→17:33)
[2018-09-07] MEDS: DOCUSATE SODIUM 100 MG CAP PO SCH ×2 (09:00→17:00)
[2018-09-07] MEDS: GABAPENTIN 100 MG CAP PO SCH ×2 (09:00→17:00)
[2018-09-07] MEDS: ASPIRIN 81 MG ENTERIC COATED PO SCH (09:00)
[2018-09-07] MEDS: FAMOTIDINE 20 MG/2 ML VIAL IV SCH ×2 (09:00→20:36)
[2018-09-07] MEDS: VANCOMYCIN 1GM/NS 250 ML 250 ML IV SCH ×2 (09:00→20:36)
[2018-09-07] MEDS: LISINOPRIL 10 MG TAB PO SCH (09:00)
[2018-09-07] MEDS: ROPINIROLE HCL 0.25 MG TAB PO SCH (09:00)
[2018-09-07 11:53] VITALS: BP 107/65
--- NOTE | 2018-09-07 12:37 | Progress Note ---
DATE: September 07, 2018 CARDIOLOGY PROGRESS NOTE SUBJECTIVE: Patient denies chest pain or shortness of breath. She is scheduled for amputation of her second toe tomorrow. OBJECTIVE VITAL SIGNS: Temperature 97.9 degrees, pulse 71, respiratory rate 19, blood pressure 110/70, oxygen saturation 96% on room air. GENERAL: Awake, alert, in no acute distress. LUNGS: Clear to auscultation bilaterally. No wheezes or crackles. CARDIOVASCULAR: Normal rate, regular rhythm. No murmur. Normal S1 and S2. ABDOMEN: Soft, nontender. EXTREMITIES: Erythema is present on the right lower extremity with gangrenous changes to the right second toe. Foot is wrapped. CARDIAC MEDICATIONS 1. Lisinopril 40 mg p.o. daily. 2. Aspirin 81 mg p.o. daily. LABS: WBC 10, hemoglobin 10.9, hematocrit 33.5, platelets 225. Sodium 139, potassium 4.3, chloride 102, CO2 of 27, BUN 16, creatinine 0.86. IMPRESSION 1. Peripheral arterial disease with critical limb ischemia in the right lower extremity, status post atherectomy and balloon angioplasty of the right femoral artery, anterior tibial arteries with excellent angiographic results. 2. Cellulitis and gangrene of the right second toe. 3. Diabetes mellitus. 4. Hypertension. 5. History of cerebrovascular accident. 6. Hyperlipidemia. 7. Smoking. 8. Obesity. RECOMMENDATIONS: Wound care per podiatry. Plavix was discontinued for amputation per podiatry request. Continue aspirin if possible. Continue current cardiac medications, otherwise. Antibiotics per primary service. The patient will need to be scheduled for staged intervention of her left femoral artery at a later date. Thank you for this consult. We will continue to follow. Job#: [id number] VILMA KAUR
[2018-09-07] MEDS: TRAMADOL HCL 50 MG TAB PO PRN ×2 (12:52→21:04)
[2018-09-07 16:00] VITALS: BP 98/58
[2018-09-07] MEDS: TRAZODONE HCL 50 MG TAB PO SCH (20:36)
[2018-09-07 20:52] VITALS: BP 111/69
[2018-09-07] MEDS ORDERED: SODIUM CHLORIDE 0.9% 250ML 250 ML ONE (22:27)
[2018-09-08] VITALS (8 sets, daily range): BP systolic 117–159; BP diastolic 57–84
[2018-09-08] MEDS: HYDROMORPHONE 2MG/ML 2 MG/ML ML IV PRN ×5 (04:30→22:59)
[2018-09-08] MEDS: PIPER-TAZ 3.375 GM 50 ML IV SCH ×3 (06:38→17:25)
[2018-09-08] MEDS: INSULIN REGULAR, HUMAN 100 UNIT/1 ML 3ML VIAL SQ SCH ×4 (07:30→21:49)
[2018-09-08] MEDS: ASPIRIN 81 MG ENTERIC COATED PO SCH (09:00)
[2018-09-08] MEDS: VANCOMYCIN 1GM/NS 250 ML 250 ML IV SCH ×2 (09:00→21:48)
[2018-09-08] MEDS: FAMOTIDINE 20 MG/2 ML VIAL IV SCH ×2 (09:00→21:48)
[2018-09-08] MEDS: DOCUSATE SODIUM 100 MG CAP PO SCH ×2 (09:00→17:00)
[2018-09-08] MEDS: GABAPENTIN 100 MG CAP PO SCH ×2 (09:00→17:00)
--- OUTSIDE RECORDS SUMMARY | 2018-09-08 12:26 | XMS REPORT ---
Author Author [facility] Address Unknown Phone Unavailable Care Team Providers Care Aba Tutor Name Role Phone Amada REYES Unavailable Unavailable Tess ANAYA Unavailable Unavailable Problems This patient has no known problems. Allergies, Adverse Reactions, Alerts This patient has no known allergies or adverse reactions. Medications This patient has no known medications. Results Test Description Test Time Test Comments Text Results Atomic Results Result Comments FOOT RIGHT COMPLETE 2018-09-01 23:19:00 [place] [address] Patient Name: SAQIB DAVIS MR #: [id number] : 1960 Age/Sex: 58/F Req #: [id number] [facility] Physician: Ordered by: SHIVANI REYES MD Report #: [id number] Location: ER Room/Bed: Procedure: [id number] DX/FOOT RIGHT COMPLETE Exam Date: 09/01/18 Exam Time: 2245 REPORT STATUS: Signed EXAM: FOOT RIGHT COMPLETE, AP, lateral and oblique INDICATION: Second toe necrosis COMPARISON: None FINDINGS: BONES: No acute fractures. JOINTS: No malalignment. SOFT TISSUES: Soft tissue swelling of the second digit. IMPRESSION: No radiographic evidence of osteomyelitis. Soft tissue swelling of the second digit. Signed by: Dr. Andrea Alicea M.D. on 09/01/2018 11:20 PM Dictated By: ANDREA ALICEA MD 19 Transcribed By: MODESTO on 09/01/182319 COPY TO: SHIVANI REYES MD LOWER LEG RIGHT 2018-09-01 23:08:00 [place] [id number] [place] [address] Patient Name: SAQIB DAVIS MR #: [id number] : 1960 Age/Sex: 58/F Req #: [id number] Adm Physician: Ordered by: SHIVANI REYES MD Report #: [id number] Location: ER Room/Bed: Procedure: [id number] DX/LOWER LEG RIGHT Exam Date: 09/01/18 Exam Time: 2245 REPORT STATUS: Signed EXAM: LOWER LEG RIGHT, AP and lateral INDICATION: Right second toe necrosis COMPARISON: None FINDINGS: BONES: No acute fractures. JOINTS: No malalignment. SOFT TISSUES: Normal IMPRESSION: Normal appearance of right tibia and fibula. Signed by: Dr. Andrea Alicea M.D. on 09/01/2018 11:18 PM Dictated By: ANDREA ALICEA MD 17 Transcribed By: MODESTO on 09/01/182317 COPY TO: SHIVANI REYES MD CHEST SINGLE (PORTABLE) 2018-09-01 23:07:00 [place] [address] Patient Name: SAQIB DAVIS MR #: [id number] : 1960 Age/Sex: 58/F Req #: [id number] Adm Physician: Ordered by: SHIVANI REYES MD Report #: [id number] Location: ER Room/Bed: Procedure: [id number] DX/CHEST SINGLE (PORTABLE) Exam Date: Exam Time: REPORT STATUS: Signed EXAM: CHEST SINGLE (PORTABLE), AP 1 view INDICATION: Second toe necrosis COMPARISON: None FINDINGS: LINES/TUBES: None LUNGS: No consolidations or edema. PLEURA: No effusions or pneumothorax. HEART AND MEDIASTINUM: Normal size and contour. BONES AND SOFT TISSUES: No acute findings. IMPRESSION: No acute thoracic abnormality. Signed by: Dr. Andrea Alicea M.D. on 09/01/2018 11:08 PM Dictated By: ANDREA ALICEA MD 07 Transcribed By: MODESTO on 09/01/182307 COPY TO: SHIVANI REYES MD LOWER LEG RIGHT [place] [address] Patient Name: SAQIB DAVIS MR #: [id number] : 1960 Age/Sex: 57/F Req #: [id number] Adm Physician: Ordered by: VICENTE ANAYA MD Report #: [id number] Location: ER Room/Bed: Procedure: [id number] DX/LOWER LEG RIGHT Exam Date: 01/05/18 Exam Time: 2128 REPORT STATUS: Signed FOOT LEFT COMPLETE, LOWER LEG RIGHT Comparison: None Clinical history: Left foot and right leg pain, concern for osteomyelitis Findings: Left foot: Mild sclerosis of the base of the first proximal phalanx which may be degenerative. No acute fracture or dislocation. No evidence of bony destruction or focal soft tissue abnormality. Right tibia and fibula: No acute fracture or dislocation. No bony destruction. Minimal diffuse soft tissue swelling. Impression: 1. No radiographic evidence of acute osteomyelitis. There is ongoing clinical concern, recommend nonemergent MRI with and without IV contrast. Signed by: Dr Karis Hunt MD on 01/05/2018 10:26 PM Dictated By: KARIS HUNT MD 25 Transcribed By: MODESTO on 01/05/182225 COPY TO: VICENTE ANAYA MD FOOT LEFT COMPLETE [place] [address] Patient Name: SAQIB DAVIS MR #: [id number] : 1960 Age/Sex: 57/F Req #: [id number] Adm Physician: Ordered by: VICENTE ANAYA MD Report #: [id number] Location: ER Room/Bed: Procedure: [id number] DX/FOOT LEFT COMPLETE Exam Date: 01/05/18 Exam Time: 2132 REPORT STATUS: Signed FOOT LEFT COMPLETE, LOWER LEG RIGHT Comparison: None Clinical history: Left foot and right leg pain, concern for osteomyelitis Findings: Left foot: Mild sclerosis of the base of the first proximal phalanx which may be degenerative. No acute fracture or dislocation. No evidence of bony destruction or focal soft tissue abnormality. Right tibia and fibula: No acute fracture or dislocation. No bony destruction. Minimal diffuse soft tissue swelling. Impression: 1. No radiographic evidence of acute osteomyelitis. There is ongoing clinical concern, recommend nonemergent MRI with and without IV contrast. Signed by: Dr Karis Hunt MD on 01/05/2018 10:26 PM Dictated By: KARIS HUNT MD 25 Transcribed By: MODESTO on 01/05/182225 COPY TO: VICENTE ANAYA MD
[2018-09-08] MEDS ORDERED: BACITRACIN 50,000 UNIT VIAL ONE (12:42)
[2018-09-08] MEDS ORDERED: LIDOCAINE HCL 2% LOCAL 20 ML VIAL ONE (12:42)
[2018-09-08] MEDS ORDERED: MUPIROCIN 2% OINT 22 GM TUBE ONE (12:42)
[2018-09-08] MEDS ORDERED: SODIUM CHLORIDE 0.9% 100 ML 100 ML ONE (13:11)
[2018-09-08] MEDS ORDERED: FENTANYL CITRATE/PF 100MCG/2 ML INJ ONE ×2 (14:05→17:32)
--- NOTE | 2018-09-08 14:41 | Operative Report ---
DATE OF PROCEDURE: September 08, 2018 PREOPERATIVE DIAGNOSIS: Gangrene, 2nd digit, right foot. POSTOPERATIVE DIAGNOSIS: Gangrene, 2nd digit, right foot. PROCEDURE: Amputation/disarticulation of 2nd metatarsophalangeal joint, right foot. COMMERCIAL BAKER HELPER: None. HEMOSTASIS: Pneumatic tourniquet, right ankle. ANESTHESIA: General LMA. PATHOLOGY: Digit and deep C and S. INJECTABLES: 7 mL of 2% lidocaine plain. INDICATIONS FOR PROCEDURE: Ms. Gaona is a pleasant, 58-year-old female who is suffering from pain and discomfort of the right foot secondary to PAD and gangrene of the right foot, particularly the 2nd digit. Endovascular intervened recently within this week. At this point, we are proceeding with digital amputation. The patient was counseled on risks and complications including but not limited to need for further amputation, nonhealing and others. She is willing and able to proceed. DESCRIPTION OF PROCEDURE: Under mild sedation, she was brought to the operating room, placed on the operating room table in the supine position. Following induction and administration of general LMA anesthesia by the anesthesia services, a well-padded pneumatic tourniquet was placed on the patient's right ankle. Next, the distal right lower extremity was scrubbed, prepped and draped in the usual aseptic manner. The extremity was then elevated, exsanguinated, and the tourniquet inflated to 250 mmHg. Attention was then directed to the 2nd digit, right foot, where 2 converging semielliptical incisions were created from dorsal to plantar. Full-thickness incisions were created. Once at the level of the metatarsophalangeal joint, transverse tenotomy and capsulotomy were performed, and the digit was disarticulated. The area was copiously irrigated with saline. The tourniquet was deflated. Some bleeding was established. Quarter-inch iodoform packing was then placed. Then the area was closed with 3-0 nylon. The aforementioned injectable was then infiltrated to the surgical site. The patient was then extubated, and dressings were applied. She was transferred to PACU with vital signs stable. Job#: [id number]
[2018-09-08] MEDS: LISINOPRIL 10 MG TAB PO SCH (15:00)
[2018-09-08] MEDS: ROPINIROLE HCL 0.25 MG TAB PO SCH (15:00)
[2018-09-08] MEDS: TRAMADOL HCL 50 MG TAB PO PRN (17:00)
[2018-09-08] MEDS ORDERED: PROPOFOL IV EMULSION 10 MG/ML 20 ML VIAL ONE (17:11)
[2018-09-08] MEDS ORDERED: LIDOCAINE HCL 2% LOCAL INJ 5 ML SDV VIAL INJ ONE (17:11)
[2018-09-08] MEDS ORDERED: ONDANSETRON HCL INJ 2 MG/ML VIAL ONE (17:11)
[2018-09-08] MEDS ORDERED: SEVOFLURANE INHAL SOLN 250 ML PEN BTL ONE (17:11)
[2018-09-08] MEDS ORDERED: MIDAZOLAM HCL 2 MG/2 ML VIAL ONE (17:32)
[2018-09-08] MEDS: ACETAMINOPHEN/CODEINE 300MG - 30MG TAB PO PRN (18:24)
[2018-09-08] MEDS: TRAZODONE HCL 50 MG TAB PO SCH (21:48)
[2018-09-09 00:33] VITALS: BP 132/72
[2018-09-09] MEDS: TRAMADOL HCL 50 MG TAB PO PRN ×2 (01:40→08:56)
[2018-09-09] MEDS: ACETAMINOPHEN/CODEINE 300MG - 30MG TAB PO PRN (02:42)
[2018-09-09] MEDS ORDERED: HYDROMORPHONE 1MG/1ML INJ IV PRN (03:30)
[2018-09-09] MEDS: HYDROMORPHONE 2MG/ML 2 MG/ML ML IV PRN ×2 (04:53→11:37)
[2018-09-09 05:13] VITALS: BP 123/61
[2018-09-09] MEDS: INSULIN REGULAR, HUMAN 100 UNIT/1 ML 3ML VIAL SQ SCH ×2 (07:30→11:30)
[2018-09-09 08:00] VITALS: BP 106/95
[2018-09-09 08:30] VITALS: BP 106/56
[2018-09-09] MEDS: GABAPENTIN 100 MG CAP PO SCH (08:56)
[2018-09-09] MEDS: DOCUSATE SODIUM 100 MG CAP PO SCH (08:56)
[2018-09-09] MEDS: FAMOTIDINE 20 MG/2 ML VIAL IV SCH (08:56)
[2018-09-09] MEDS: ASPIRIN 81 MG ENTERIC COATED PO SCH (08:56)
[2018-09-09] MEDS: LISINOPRIL 10 MG TAB PO SCH (08:57)
[2018-09-09] MEDS: ROPINIROLE HCL 0.25 MG TAB PO SCH (08:57)
[2018-09-09] MEDS: PIPER-TAZ 3.375 GM 50 ML IV SCH ×2 (10:21→11:29)
[2018-09-09] MEDS ORDERED: VANCOMYCIN 1GM/NS 250 ML 250 ML IV SCH (11:00)
[2018-09-09 12:02] VITALS: BP 106/69
--- NOTE | 2018-09-09 13:50 | Progress Note ---
DATE: September 09, 2018 CARDIOLOGY PROGRESS NOTE SUBJECTIVE: No major events overnight. Status post amputation of her right lower extremity toe. Complains about some surgical pain. Otherwise no complaints. OBJECTIVE VITAL SIGNS: Temperature 98.2, pulse 71, respiratory rate 20, blood pressure 106/69, satting 100% on room air. GENERAL: Obese female, no acute distress, well developed, well nourished. CARDIOVASCULAR: Difficult exam due to body habitus. PMI could not be palpated. Normal S1, S2. No murmurs, rubs or gallops. Palpable carotid pulses. Palpable radial pulses. LUNGS: Clear to auscultation bilaterally. No respiratory distress. ABDOMEN: Obese, soft, nontender. No masses. NEURO AND PSYCH: Alert and oriented to person, place and time. Normal affect. LABORATORY DATA: Reviewed. CARDIOVASCULAR MEDICATIONS: Reviewed. IMAGING DATA: Reviewed. ASSESSMENT AND PLAN: 1. Peripheral arterial disease with critical limb ischemia in the right lower extremity, status post atherectomy and balloon angioplasty of the right femoral artery and anterior tibial artery with excellent angiographic results and caodaism of blood flow. 2. Cellulitis and gangrene of the right second toe, status post amputation. 3. Diabetes. 4. Hypertension. 5. History of cerebrovascular accident. 6. Hyperlipidemia. 7. Smoking. 8. Obesity. PLAN: Wound care per Podiatry. Plavix was discontinued for amputation per Podiatry request. Continue aspirin. Continue current cardiac medications. Patient is scheduled to transfer for rehab. Once rehab is completed and wound healing is progressing well, patient will need a staged intervention of the left lower extremity peripheral arterial disease. Discussed this with the patient, and she will follow up in clinic once she is discharged from rehab. Thank you for this consult. Will continue to follow. Job#: [id number] EV
== END 2018-09-09 15:19 | DRG 271 ==
LOC: ER 18:08 → ERHOLD 09-02 00:36 → MED/SURG2 09-02 03:34
PROVIDERS: ADMIT Internal Medicine; ATTEND Internal Medicine
PROC: B40D1ZZ Plain Radiography of Aorta and Bilateral Lower Extremity Arteries using Low Osmolar Contrast (ICD-10-PCS; principal; 2018-09-04)
PROC: 04CK3ZZ Extirpation of Matter from Right Femoral Artery, Percutaneous Approach (ICD-10-PCS; 2018-09-04)
PROC: 047K3Z1 Dilation of Right Femoral Artery using Drug-Coated Balloon, Percutaneous Approach (ICD-10-PCS; 2018-09-04)
PROC: 047P3Z1 Dilation of Right Anterior Tibial Artery using Drug-Coated Balloon, Percutaneous Approach (ICD-10-PCS; 2018-09-04)
PROC: 04CP3ZZ Extirpation of Matter from Right Anterior Tibial Artery, Percutaneous Approach (ICD-10-PCS; 2018-09-04)
PROC: 04CK3ZZ Extirpation of Matter from Right Femoral Artery, Percutaneous Approach (ICD-10-PCS; 2018-09-04)
PROC: 0Y6M0Z5 Detachment at Right Foot, Complete 2nd Ray, Open Approach (ICD-10-PCS; 2018-09-08)
DX: E11.52 Type 2 diabetes mellitus with diabetic peripheral angiopathy with gangrene (principal); L03.115 Cellulitis of right lower limb; I69.354 Hemiplegia and hemiparesis following cerebral infarction affecting left non-dominant side; E11.65 Type 2 diabetes mellitus with hyperglycemia; Z88.5 Allergy status to narcotic agent; J44.9 Chronic obstructive pulmonary disease, unspecified; Z82.49 Family history of ischemic heart disease and other diseases of the circulatory system; I11.0 Hypertensive heart disease with heart failure; I50.9 Heart failure, unspecified; E66.9 Obesity, unspecified; Z72.0 Tobacco use; E78.5 Hyperlipidemia, unspecified; E11.621 Type 2 diabetes mellitus with foot ulcer; L97.519 Non-pressure chronic ulcer of other part of right foot with unspecified severity; Z68.34 Body mass index [BMI] 34.0-34.9, adult; E11.42 Type 2 diabetes mellitus with diabetic polyneuropathy; Z79.4 Long term (current) use of insulin
CPT/HCPCS: 36247; 36415; 37186; 37225; 37233; 71045; 75625; 75716; 75774; 80048; 80053; 80061; 80202; 81001; 82550; 82553; 82948; 83036; 83605; 83735; 83880; 84484; 85025; 85347; 85610; 85651; 85730; 86140; 87040; 87071; 87075; 87086; 87186; 87205; 88304; 88305; 88311; 93005; 93925; 96361; 96366; 97139; 99284; C1725; C1769; C2623; J1644; J2001; J2250; J2405; J2543; J3370; J7030; J7050; Q9967

== ENCOUNTER 2018-12-07 21:01 | Inpatient (IN) | payer MEDICARE ==
[~2018-12-07] VITALS: Ht 170.2 cm; Wt 99.6 kg
[2018-12-08] MEDS ORDERED: VANCOMYCIN 1GM/NS 250 ML 250 ML IV ONE (02:00)
[2018-12-08] MEDS ORDERED: PIPER-TAZ 3.375 GM 50 ML IV ONE (02:00)
--- NOTE | 2018-12-08 02:21 | Diagnostic Imaging Report ---
EXAM: HIP LEFT 2-3 VW (+/- PELVIS) INDICATION: Pain and left hip for one week, felt pop while walking COMPARISON: None FINDINGS: BONES: No acute fractures. JOINTS: No malalignment. Degenerative changes of L5/S1 with likely transitional anatomy and pseudoarthrosis. SOFT TISSUES: Regional vascular calcifications. IMPRESSION: No evidence of a left hip fracture. Signed by: Dr. Analia Alicea M.D. on 12/08/2018 2:18 AM
[2018-12-08] MEDS ORDERED: SODIUM CHLORIDE 0.9% 250ML 250 ML ONE ×2 (02:39→16:36)
[2018-12-08 02:45] LABS: BASOPHILS # (AUTO) 0.1 (0.0-0.1); BASOPHILS % 0.8 % (0.0-1.0); EOSINOPHILS # (AUTO) 0.3 (0.0-0.4); EOSINOPHILS % 2.8 % (0.0-6.0); HEMATOCRIT 39.9 % (34.2-44.1); HEMOGLOBIN 13.4 g/dL (12.0-16.0); LYMPHOCYTES # (AUTO) 2.3 (1.0-3.2); LYMPHOCYTES % 22.4 % (18.0-39.1); MEAN CORPUSCULAR HGB CONC 33.6 g/dL (31-35); MEAN CORPUSCULAR VOLUME 95.2 fL (81-99); MONOCYTES # (AUTO) 0.6 (0.2-0.8); MONOCYTES % 5.7 % (4.4-11.3); NEUTROPHILS % 67.7 % (38.7-80.0); PLATELET COUNT 170 x10e3/uL (140-360); RED BLOOD COUNT 4.19 x10e6/uL (3.6-5.1); RED CELL DISTRIBUTION WIDTH 15.7 % (11.7-14.4)
[2018-12-08] MEDS ORDERED: LACTULOSE SYRUP 20 GM/30 ML UDC PO PRN (02:45)
[2018-12-08] MEDS ORDERED: DIPHENHYDRAMINE HCL INJ 50 MG/ML VIAL IV PRN (02:45)
[2018-12-08] MEDS ORDERED: ACETAMINOPHEN 325 MG TAB PO PRN (02:45)
[2018-12-08] MEDS ORDERED: ONDANSETRON HCL INJ 2MG/ML 2ML 2 MG/ML VIAL IV PRN (02:45)
[2018-12-08] MEDS ORDERED: IBUPROFEN 200 MG TAB PO PRN (02:45)
[2018-12-08] MEDS ORDERED: ENALAPRILAT IV INJ 1.25 MG/ML VIAL IV PRN (02:45)
[2018-12-08 02:59] LABS: INR 0.87; PARTIAL THROMBOPLASTIN TIME 30.4 seconds (23.8-35.5); PROTHROMBIN TIME 12.7 seconds (11.9-14.5)
[2018-12-08 03:08] LABS: ALBUMIN/GLOBULIN RATIO 0.7 (0.8-2.0); ANION GAP 16.5 mmol/L (8-16); CALCIUM 8.8 mg/dL (8.4-10.2); CREATININE, SERUM 1.18 mg/dL (0.57-1.11); POTASSIUM 4.5 mmol/L (3.5-5.1)
[2018-12-08] MEDS ORDERED: INSULIN DETEMIR 100 UNIT/ML PEN SQ ONE (03:45)
[2018-12-08] MEDS ORDERED: INSULIN REGULAR, HUMAN 100 UNIT/1 ML 3ML VIAL IV ONE (03:45)
[2018-12-08] MEDS ORDERED: VANCOMYCIN 1GM/NS 250 ML 250 ML IV SCH (04:00)
[2018-12-08] MEDS ORDERED: DEXTROSE 50% SYRINGE 50 ML IV PRN (04:00)
[2018-12-08] MEDS ORDERED: SODIUM CHLORIDE FLUSH 10 ML SYR INJ PRN (04:00)
[2018-12-08] MEDS: DIPHENHYDRAMINE HCL 25 MG CAP PO PRN (04:45)
[2018-12-08] MEDS ORDERED: HYDROCODON-ACE1 EAC9 PO (05:56)
[2018-12-08] MEDS ORDERED: AMLODIPINE BESY10 MG PO (05:56)
[2018-12-08] MEDS ORDERED: BUPROPION HCL150 M2 PO (05:56)
[2018-12-08] MEDS ORDERED: HYDROCODONE/APAP 7.5MG-325MG 1 EA TAB PO PRN (06:00)
[2018-12-08] MEDS: PIPER-TAZ 3.375 GM 50 ML IV SCH ×4 (06:11→23:32)
[2018-12-08] MEDS ORDERED: LANTUS 3ML100 UNITS/ SQ (07:05)
[2018-12-08] MEDS ORDERED: HYDROMORPHONE 1MG/1ML INJ IV PRN (08:00)
[2018-12-08] MEDS ORDERED: PANTOPRAZOLE SOD 40 MG TABEC ONE (08:22)
[2018-12-08 08:59] LABS: CHOL/HDL RATIO 2.6 (3.0-3.6)
[2018-12-08] MEDS: FAMOTIDINE 20 MG TAB PO SCH ×2 (09:02→16:43)
[2018-12-08] MEDS: HYDROMORPHONE 2MG/ML 2 MG/ML ML IV PRN ×5 (09:02→23:29)
[2018-12-08] MEDS: INSULIN REGULAR, HUMAN 100 UNIT/1 ML 3ML VIAL SQ SCH ×4 (09:03→21:08)
[2018-12-08] MEDS: VANCOMYCIN 1GM/NS 250 ML 250 ML IV SCH (09:33)
--- NOTE | 2018-12-08 09:40 | History and Physical ---
PRIMARY CARE PHYSICIAN: Hailey Jones. CHIEF COMPLAINT: Foot pain for a toe amputation. HISTORY OF PRESENT ILLNESS: This 58-year-old woman, with history of diabetic foot ulcer, underwent right foot 2nd digit amputation in 02/2018, went to [facility] for antibiotics and therapy. Returned home on 11/24/2018. Now with worsening pain of the site and some redness, prompting a visit to the hospital. She was admitted for further evaluation and management. PAST MEDICAL HISTORY 1. Diabetes mellitus, type 2. 2. Diabetic neuropathy. 3. Stroke with residual left-sided weakness and use of cane. 4. Congestive heart failure, type unknown. 5. Cigarette use. 6. Hyperlipidemia. 7. Degenerative joint disease of the lumbosacral spine. 8. Chronic pain disorder. 9. Peripheral arterial disease secondary to diabetes. 10. Gangrenous toe of 2nd digit, right foot, status post amputation. PAST SURGICAL HISTORY: Back. ALLERGIES: PER ELECTRONIC MEDICAL RECORD. FAMILY AND SOCIAL HISTORY: The patient is . She has 3 children. No alcohol or illicits. She smokes intermittently. MEDICATIONS: Per electronic medical record. REVIEW OF SYSTEMS: Denies any fever, chills, sweats, nausea, vomiting, diarrhea, headache, chest pain, vision changes, skin rash. PHYSICAL EXAMINATION VITAL SIGNS: Have been reviewed. GENERAL: A tired-appearing woman resting in bed. HEENT: Anicteric. CARDIOVASCULAR: Normal S1 and S2. LUNGS: Moderate breath sounds. ABDOMEN: Soft, nontender, nondistended. EXTREMITIES: She has trace edema of the right foreleg. She has 2nd digit on the right foot absent. She has some induration at that surgical site. Minimal erythema. There is tenderness at the site. No discharge or odor. SKIN: Dry. PSYCHIATRIC: Flat affect. NEUROLOGIC: Alert and oriented x3. Moving all extremities. LABS: Reviewed. MEDICATIONS: Reviewed. ASSESSMENT: This is a 58-year-old woman. 1. Peripheral arterial disease secondary to cigarette use. 2. Peripheral arterial disease secondary to diabetes mellitus. 3. Right foot pain. 4. Chronic obstructive pulmonary disease. 5. History of shortness and obesity. Body mass index 33.6. 6. Ambulatory dysfunction. 7. Acute kidney injury. PLAN 1. Antibiotics. 2. Follow up cultures. 3. Podiatry consultation. 4. Obtain hemoglobin A1c and lipid panel. 5. Diabetes control. 6. Continue cigarette cessation and counseling. 7. Follow up podiatry recommendations. 8. Use Lovenox and Pepcid for prophylaxis. 9. Rehydrate the patient. Control glucose. Job#: [id number]
[2018-12-08] MEDS: SODIUM CHLORIDE 0.9% 1000ML 1,000 ML IV SCH (09:44)
[2018-12-08 13:00] VITALS: BP_SYST 122; BP_SYST 126; BP_DIAS 54; BP_DIAS 62
[2018-12-08 13:30] VITALS: BP 122/62
--- NOTE | 2018-12-08 13:30 | NUR ---
Pt received from ER via wheelchair. Pt with h/o right foot second toe amputation site with open wound and yellow pus/slough noted. Diluted Betadine wet to dry dressing applied. Alert and oriented x4, Oriented to staff and surroundings. Encouraged to press call farrell if help needed. Call farrell within reach. Will monitor
[2018-12-08 16:00] VITALS: BP 132/60
--- NOTE | 2018-12-08 16:05 | NUR ---
Visit made by the Spiritual Care Department Pastoral Visitor, Smitha Del Angel. PV provided pastoral presence, prayer, hospitality, and supportive listening. Pastoral Visitor informed pt/family of the scope of [employer]ulic [employer] Services and availability. WILLA SORENSON Senior Managing Director Spiritual Care Department O: [phone] Pager: [phone] ([phone] number calling from)
--- NOTE | 2018-12-08 19:30 | NUR ---
Patient visited in room during nursing rounds. Patient alert and oriented x3. Site of right 2nd toe amputation covered with dressing (C/D/I). On IVF (NS @50ml/hr). Patient having frequent pain on wound site and will be medicated accordingly. Call farrell within reach. Will monitor closely.
[2018-12-08 20:00] VITALS: BP 143/65
[2018-12-09] VITALS: BP 149/77
[2018-12-09] MEDS: HYDROMORPHONE 2MG/ML 2 MG/ML ML IV PRN ×7 (02:36→22:25)
[2018-12-09 04:00] VITALS: BP 123/58
[2018-12-09] MEDS: PIPER-TAZ 3.375 GM 50 ML IV SCH ×4 (05:54→23:14)
[2018-12-09] MEDS: FAMOTIDINE 20 MG TAB PO SCH ×2 (05:54→15:31)
[2018-12-09 06:16] LABS: BASOPHILS # (AUTO) 0.1 (0.0-0.1); BASOPHILS % 0.7 % (0.0-1.0); EOSINOPHILS # (AUTO) 0.4 (0.0-0.4); EOSINOPHILS % 3.7 % (0.0-6.0); HEMATOCRIT 40.2 % (34.2-44.1); HEMOGLOBIN 13.2 g/dL (12.0-16.0); LYMPHOCYTES # (AUTO) 2.5 (1.0-3.2); LYMPHOCYTES % 20.7 % (18.0-39.1); MEAN CORPUSCULAR HEMOGLOBIN 31.1 pg (28-32); MEAN CORPUSCULAR HGB CONC 32.8 g/dL (31-35); MEAN CORPUSCULAR VOLUME 94.6 fL (81-99); MONOCYTES # (AUTO) 0.6 (0.2-0.8); MONOCYTES % 4.6 % (4.4-11.3); NEUTROPHILS # (AUTO) 8.4 (2.1-6.9); NEUTROPHILS % 69.8 % (38.7-80.0); PLATELET COUNT 182 x10e3/uL (140-360); RED BLOOD COUNT 4.25 x10e6/uL (3.6-5.1); RED CELL DISTRIBUTION WIDTH 15.6 % (11.7-14.4)
[2018-12-09 06:33] LABS: ANION GAP 11.5 mmol/L (8-16); BLOOD UREA NITROGEN 25 mg/dL (7-26); BUN/CREATININE RATIO 30 (6-25); CALCIUM 8.3 mg/dL (8.4-10.2); CARBON DIOXIDE 28 mmol/L (22-29); CHLORIDE 101 mmol/L (98-107); CREATININE, SERUM 0.84 mg/dL (0.57-1.11); EST GLOMERULAR FILTRATION RATE > 60 ML/MIN (60-); GLUCOSE 204 mg/dL (74-118); POTASSIUM 4.5 mmol/L (3.5-5.1); SODIUM 136 mmol/L (136-145)
--- NOTE | 2018-12-09 06:42 | NUR ---
Called and spoke with answering service (Hang) to inform Dr. Mayo Roberts that he was consulted to see patient re: diabetic foot ulcer. Awaiting on MD call back or MD visit to see patient.
[2018-12-09] MEDS: INSULIN REGULAR, HUMAN 100 UNIT/1 ML 3ML VIAL SQ SCH ×4 (07:30→21:15)
[2018-12-09 08:11] VITALS: BP 138/63
[2018-12-09] MEDS: VANCOMYCIN 1GM/NS 250 ML 250 ML IV SCH (08:57)
--- NOTE | 2018-12-09 09:09 | NUR ---
RECEIVED CALL FROM DR. RUELAS- NEW ORDERS RECEIVED.
[2018-12-09 12:00] VITALS: BP 109/59
--- NOTE | 2018-12-09 13:44 | NUR ---
CALL PLACED OUT TO DR. RUELAS REGARDING WEIGHT BEARING STATUS- AWAITING CALLBACK.
[2018-12-09] MEDS: COLLAGENASE OINTMENT 30 GM TUBE TP SCH (14:01)
[2018-12-09] MEDS: LIDOCAINE 5% OINT TOP SCH (14:01)
--- NOTE | 2018-12-09 15:58 | Consultation ---
DATE OF CONSULTATION: December 09, 2018 REASON FOR CONSULTATION: Nonhealing ulceration, right foot, and pain, right foot. HISTORY OF PRESENT ILLNESS: Mrs. Gaona is a very pleasant female well known to me from a previous admission secondary to similar diagnosis. She was admitted then with necrotic 2nd digit of the right foot, which subsequently was amputated. She does have a history of arthrectomy to the right lower extremity both per records proximally and distally. However, she has been battling with regards to healing the amputation site for greater than 3 months with no significant success. Still has pain. Recently admitted and went through the ED secondary to persistent pain and discomfort to the area. I was asked to re-evaluate. PAST MEDICAL HISTORY: Diabetes, peripheral arterial disease, congestive heart failure, neuropathy, CVA, smoking, hyperlipidemia, chronic pain. FAMILY HISTORY: CAD and sudden cardiac . SOCIAL HISTORY: Smoker. No evidence of alcohol or illicit drug use. REVIEW OF SYSTEMS: Pain to the right foot. Otherwise, denies any nausea, vomiting, fever, chills, constipation, hematuria, constipation, diarrhea. Left hip pain. PHYSICAL EXAMINATION GENERAL: A and O times 3. NAD. At the current moment, undergoing vascular studies of noninvasive arterial study at bedside albeit arterial Dopplers. VITAL SIGNS: Stable. She is afebrile. HEENT: Normocephalic and atraumatic. Anicteric. ABDOMEN: Soft, nontender and nondistended. RESPIRATORY: Symmetrical expansion and normal. PSYCHIATRIC: Normal affect. EXTREMITIES: Indeed, faint pulses of right foot with a nonhealing amputation site stump, 2nd digit with base of the same being fibrotic. No active drainage or subtle malodor emanating from the site. No soft tissue crepitus. DIAGNOSTIC DATA: Hip x-rays reveal unremarkable findings although it has what appears to be an S1-L5 degeneration. LABS: With an increase in WBCs of 12.03, hemoglobin and hematocrit within normal limits. Sed rate is 83. Upon admission, her blood sugar was 521. Her A1c is 8.3. Accu-Cheks lowest 118. Highest is 304. ASSESSMENT 1. Diabetic patient with underlying peripheral arterial disease with chronic pain, peripheral neuropathy. 2. Nonhealing diabetic ulceration: At this point, status post 2nd digit amputation. PLAN: Recommend vascular reassessment. Prognosis for healing is significantly guarded due to the underlying comorbidities. Due to the nonemergent nature of the same and appearance of the same, at this point may proceed with local wound care. The patient expressed very profoundly the desire to not proceed with any amputations. Thus, continue local wound care. Will continue to follow and monitor. Job#: [id number] RI
[2018-12-09] MEDS: SODIUM CHLORIDE 0.9% 1000ML 1,000 ML IV SCH ×2 (17:41→23:52)
[2018-12-09 17:50] VITALS: BP 140/66
--- NOTE | 2018-12-09 18:51 | NUR ---
PATIENT IS IN STABLE CONDITION WITH NO S/S OF RESPIRATORY DISTRESS. PATIENT REQUESTING PAIN MEDICATION AND IS AWARE MEDICATION IS NOT AVAILABLE AT THIS TIME- NIGHT NURSE AWARE WELL. IV FLUIDS INFUSING. BED ALARM APPLIED. CALL LIGHT IS WITHIN REACH, INSTRUCTED TO CALL FOR ASSISTANCE NEEDED. REPORT GIVEN TO ONCOMING NURSE.
[2018-12-09 21:19] VITALS: BP 142/68
[2018-12-10] VITALS (9 sets, daily range): BP systolic 126–145; BP diastolic 60–82
[2018-12-10] MEDS: HYDROMORPHONE 2MG/ML 2 MG/ML ML IV PRN ×6 (01:35→22:26)
[2018-12-10] MEDS: PIPER-TAZ 3.375 GM 50 ML IV SCH ×4 (06:00→23:25)
[2018-12-10] MEDS ORDERED: INSULIN DETEMIR 100 UNIT/ML PEN SQ ONE (06:30)
--- NOTE | 2018-12-10 06:30 | NUR ---
IM Progress Note O/N no events REVIEW OF SYSTEMS: Denies any fever, chills, sweats, nausea, vomiting, diarrhea, headache, chest pain, vision changes, skin rash. PHYSICAL EXAMINATION VITAL SIGNS: Have been reviewed. GENERAL: A tired-appearing woman resting in bed. HEENT: Anicteric. CARDIOVASCULAR: Normal S1 and S2. LUNGS: Moderate breath sounds. ABDOMEN: Soft, nontender, nondistended. EXTREMITIES: She has trace edema of the right foreleg. She has 2nd digit on the right foot absent. She has some induration at that surgical site. Minimal erythema. There is tenderness at the site. No discharge or odor. SKIN: Dry. PSYCHIATRIC: Flat affect. NEUROLOGIC: Alert and oriented x3. Moving all extremities. LABS: Reviewed. MEDICATIONS: Reviewed. ASSESSMENT: This is a 58-year-old woman. 1. Peripheral arterial disease secondary to cigarette use. 2. Peripheral arterial disease secondary to diabetes mellitus. 3. Right foot pain. 4. Chronic obstructive pulmonary disease. 5. History of shortness and obesity. Body mass index 33.6. 6. Ambulatory dysfunction. 7. Acute kidney injury. PLAN 1. Antibiotics. 2. Follow up cultures. 3. Podiatry consultation. 4. Obtain hemoglobin A1c and lipid panel. 5. Diabetes control. 6. Continue cigarette cessation and counseling. 7. Follow up podiatry recommendations. 8. Use Lovenox and Pepcid for prophylaxis. 9. Rehydrate the patient. Control glucose. 12/09 Hba1c/LDL 8.; check labs; f/u podiatry. 12/10 f/u [facility] recs. resume long acting insulin. Adam Houser MD, PhD.
--- NOTE | 2018-12-10 06:56 | NUR ---
PATIENT IS IN STABLE CONDITION WITH NO S/S OF RESPIRATORY DISTRESS. PATIENT C/O OF RIGHT FOOT PAIN. BEDSIDE COMMODE AVAILABLE NEAR BEDSIDE. CALL LIGHT IS WITHIN REACH, INSTRUCTED TO CALL FOR ASSISTANCE NEEDED.
--- NOTE | 2018-12-10 07:07 | NUR ---
Spoke with shahid Carmichael to order vanc trough for [id number]
[2018-12-10] MEDS: INSULIN REGULAR, HUMAN 100 UNIT/1 ML 3ML VIAL SQ SCH ×4 (07:30→21:45)
[2018-12-10] MEDS: ASPIRIN 81 MG ENTERIC COATED PO SCH (08:29)
[2018-12-10] MEDS: FAMOTIDINE 20 MG TAB PO SCH ×2 (08:29→15:48)
[2018-12-10] MEDS: DOCUSATE SODIUM 100 MG CAP PO SCH ×2 (08:29→17:38)
[2018-12-10] MEDS: ROPINIROLE HCL 0.25 MG TAB PO SCH (08:30)
[2018-12-10] MEDS: AMLODIPINE BESYLATE 10 MG TAB PO SCH (08:30)
[2018-12-10] MEDS ORDERED: COLLAGENASE OINTMENT 30 GM TUBE TP SCH (09:00)
[2018-12-10] MEDS: VANCOMYCIN 1GM/NS 250 ML 250 ML IV SCH (09:47)
--- NOTE | 2018-12-10 10:58 | NUR ---
CALL PLACED OUT TO DR. RUELAS REGARDING WEIGHT-BEARING STATUS- AWAITING CALLBACK.
[2018-12-10] MEDS ORDERED: MIDAZOLAM HCL 2 MG/2 ML VIAL ONE (15:37)
[2018-12-10] MEDS ORDERED: LIDOCAINE HCL 2% LOCAL 20 ML VIAL ONE (15:37)
[2018-12-10] MEDS ORDERED: SODIUM CHLORIDE 0.9% 1000ML 1,000 ML ONE (15:37)
[2018-12-10] MEDS ORDERED: IOPAMIDOL 300MG/ML 100 ML INFUS..BTL IV ONE ×2 (15:37→16:25)
[2018-12-10] MEDS ORDERED: HEPARIN SOD/SOD CHLORIDE 2,000 ML ONE (15:37)
[2018-12-10] MEDS ORDERED: FENTANYL CITRATE/PF 100MCG/2 ML INJ ONE (15:37)
--- NOTE | 2018-12-10 15:39 | NUR ---
CALL PLACED OUT TO DR. SINGH REGARDING PATIENT'S BG OF 215- PATIENT IS CURRENTLY NPO FOR MANAGER VOICE PROCEDURE. AWAITING CALLBACK.
--- NOTE | 2018-12-10 15:49 | NUR ---
PATIENT OFF THE UNIT TO GROUP CARE WORKER- PATIENT IS IN STABLE CONDITION WITH NO S/S OF RESPIRATORY DISTRESS. IV SALINE LOCKED.
[2018-12-10] MEDS ORDERED: VERAPAMIL HCL 2.5 MG/ML 2 ML VIAL ONE (16:31)
[2018-12-10] MEDS ORDERED: HYDRALAZINE HCL 20 MG/ML VIAL ONE (17:06)
--- NOTE | 2018-12-10 17:28 | NUR ---
CASE MANAGEMENT INITIAL ASSESSMENT Senior Sales Compensation Analyst to bedside to discuss plan of care with patient/family. CM/SW role and care transitions discussed. Anticipated discharge plan discussed along with duration of care. CM/SW discussed patients right to make decisions in care. CM/SW work hours given. Patient lives: SON PEPE AND DTR IN LAW Admit/Transfer: ER POA/Emergency contact: MIKHAIL DAVIS [phone] Current/Previous Home Health: NONE PCP/Follow-up Care: [facility] Current/Previous DME: [employer], [employer] WHEELCHAIR (FROM [facility]) Other Services: WAS SUPPOSED TO HAVE HOME HEALTH FOR WOUND CARE WHEN SHE LEFT [facility] ON 11/24 BUT IT WAS NEVER STARTED Employment Status: UNEMPLOYED Areas of Concerns: CONCERNED THAT SHE CANNOT WALK Referral Needs: NEEDS P.T. EVAL AND PROBABLE SNF WHEN READY FOR DC Education Needs: NEEDS TO BE EDUCATED ON F/U APPTS IMM/CHAN given and signed (if applicable): IMM ON ADMIT THRU ER Goal for discharge:TO DISCHARGE TO SNF BEFORE GOING HOME CM/SW left business card at the bedside with contact information. Name and number was also written on the patients whiteboard. Patient verbalized understanding of discussion. CM will follow-up with ongoing discharge and transition of care needs.
--- NOTE | 2018-12-10 17:39 | NUR ---
PATIENT BACK ON THE UNIT FROM [facility]- PATIENT IS TO REMAIN FLAT IN BED UNTIL 1910 PER LIVESTOCK AUCTIONE[facility] NURSE. PATIENT IS IN STABLE CONDITION WITH NO S/S OF RESPIRATORY DISTRESS. DRESSING TO PATIENT'S LEFT GROIN IS DRY AND INTACT- NO BLEEDING OR DRAINAGE NOTE;PULSES PRESENT. CALL LIGHT IS WITHIN REACH, INSTRUCTED TO CALL FOR ASSISTANCE NEEDED.
--- NOTE | 2018-12-10 19:04 | NUR ---
PATIENT IS IN STABLE CONDITION WITH NO S/S OF RESPIRATORY DISTRESS. PATIENT REMAINS FLAT IN BED- DRESSING INTACT AND DRY TO LEFT GROIN SITE. CALL LIGHT IS WITHIN REACH, INSTRUCTED TO CALL FOR ASSISTANCE NEEDED. REPORT GIVEN TO ONCOMING NURSE.
--- NOTE | 2018-12-10 20:43 | Consultation ---
DATE OF CONSULTATION: December 10, 2018 CARDIOLOGY CONSULTATION REASON FOR CONSULTATION: Peripheral arterial disease. HISTORY OF PRESENT ILLNESS: This is a 58-year-old woman with a history of peripheral arterial disease, status post intervention of the right anterior tibial and right superficial femoral arteries in August of 2018, diabetic foot ulcer with second digit amputation. Patient went to the [facility] facility and presented back here with worsening pain, swelling, erythema, and worsening infection. Today, she underwent angiography and it showed stable results from her previous angiogram with patency of the right superficial femoral and right anterior tibial vessels which filled the entire plantar arch. REVIEW OF SYSTEMS: Twelve-point review of systems was conducted and is negative except as above in the HPI. PAST MEDICAL HISTORY: Diabetes mellitus, peripheral arterial disease, diabetic foot ulcer, congestive heart failure, tobacco use, hyperlipidemia, obesity, chronic pain. PAST SURGICAL HISTORY: Percutaneous transluminal angioplasty and right second digit amputation. PAST FAMILY HISTORY: No premature coronary artery disease or sudden cardiac . SOCIAL HISTORY: No illicit drug use, alcohol use, or tobacco use. ALLERGIES: MORPHINE. MEDICATIONS: See medication reconciliation form. PHYSICAL EXAMINATION: VITAL SIGNS: Temperature is 98.5, heart rate is 77, respirations are 18, blood pressure is 133/63, oxygen saturation 97% on room air. GENERAL: Well-appearing woman in no apparent distress. NECK: No JVD. CARDIOVASCULAR: Regular rate and rhythm. No murmurs. LUNGS: Diminished breath sounds at bilateral bases. ABDOMEN: Soft, obese, nontender. EXTREMITIES: There is edema bilaterally. There is a right foot wound dressed. 2D imaging and arterial Doppler of the right lower extremity showed monophasic waveforms of the right anterior tibial vessel with occlusion of the posterior tibial and peroneal arteries. Peripheral angiography revealed results as stated above. IMPRESSION: 1. Peripheral arterial disease. 2. Diabetic foot wound. 3. Hypertension. 4. Hyperlipidemia. 5. Obesity. RECOMMENDATIONS: Patient has stable findings on her peripheral angiogram today. She has patent superficial femoral and anterior tibial vessels on the right lower extremity which feeds the entire plantar arch. No intervention is needed at this point in time. Continue aggressive wound care and antibiotic therapies. Job#: [id number]
[2018-12-10] MEDS: COLLAGENASE OINTMENT 30 GM TUBE TP SCH (21:22)
--- NOTE | 2018-12-10 21:22 | NUR ---
WOUND CARE DONE TODAY. PATIENT TOLERATED WELL.
[2018-12-10] MEDS: INSULIN DETEMIR 100 UNIT/ML PEN SQ SCH (21:45)
[2018-12-10] MEDS: LIDOCAINE 5% OINT TOP SCH (22:17)
[2018-12-10] MEDS: SODIUM CHLORIDE 0.9% 1000ML 1,000 ML IV SCH (22:39)
[2018-12-11] VITALS (8 sets, daily range): BP systolic 125–147; BP diastolic 59–75
[2018-12-11] MEDS: HYDROMORPHONE 2MG/ML 2 MG/ML ML IV PRN ×7 (01:51→21:31)
[2018-12-11] MEDS: PIPER-TAZ 3.375 GM 50 ML IV SCH ×3 (05:47→18:18)
--- NOTE | 2018-12-11 06:04 | NUR ---
IM Progress Note O/N no events REVIEW OF SYSTEMS: Denies any fever, chills, sweats, nausea, vomiting, diarrhea, headache, chest pain, vision changes, skin rash. PHYSICAL EXAMINATION VITAL SIGNS: Have been reviewed. GENERAL: A tired-appearing woman resting in bed. HEENT: Anicteric. CARDIOVASCULAR: Normal S1 and S2. LUNGS: Moderate breath sounds. ABDOMEN: Soft, nontender, nondistended. EXTREMITIES: She has trace edema of the right foreleg. She has 2nd digit on the right foot absent. She has some induration at that surgical site. Minimal erythema. There is tenderness at the site. No discharge or odor. SKIN: Dry. PSYCHIATRIC: Flat affect. NEUROLOGIC: Alert and oriented x3. Moving all extremities. LABS: Reviewed. MEDICATIONS: Reviewed. ASSESSMENT: This is a 58-year-old woman. 1. Peripheral arterial disease secondary to cigarette use. 2. Peripheral arterial disease secondary to diabetes mellitus. 3. Right foot pain. 4. Chronic obstructive pulmonary disease. 5. History of shortness and obesity. Body mass index 33.6. 6. Ambulatory dysfunction. 7. Acute kidney injury. PLAN 1. Antibiotics. 2. Follow up cultures. 3. Podiatry consultation. 4. Obtain hemoglobin A1c and lipid panel. 5. Diabetes control. 6. Continue cigarette cessation and counseling. 7. Follow up podiatry recommendations. 8. Use Lovenox and Pepcid for prophylaxis. 9. Rehydrate the patient. Control glucose. 12/09 Hba1c/LDL 8.; check labs; f/u podiatry. 12/10 f/u vasc recs. resume long acting insulin. 12/[address] to plantar vessels; cont IV abx; vanco trough 6 Adam Houser MD, PhD.
[2018-12-11 06:23] LABS: BASOPHILS # (AUTO) 0.1 (0.0-0.1); BASOPHILS % 0.7 % (0.0-1.0); EOSINOPHILS # (AUTO) 0.3 (0.0-0.4); EOSINOPHILS % 3.4 % (0.0-6.0); HEMATOCRIT 38.2 % (34.2-44.1); HEMOGLOBIN 12.5 g/dL (12.0-16.0); LYMPHOCYTES # (AUTO) 1.9 (1.0-3.2); LYMPHOCYTES % 20.1 % (18.0-39.1); MEAN CORPUSCULAR HEMOGLOBIN 30.8 pg (28-32); MEAN CORPUSCULAR HGB CONC 32.7 g/dL (31-35); MEAN CORPUSCULAR VOLUME 94.1 fL (81-99); MONOCYTES # (AUTO) 0.5 (0.2-0.8); MONOCYTES % 5.7 % (4.4-11.3); NEUTROPHILS # (AUTO) 6.6 (2.1-6.9); NEUTROPHILS % 69.6 % (38.7-80.0); PLATELET COUNT 167 x10e3/uL (140-360); RED BLOOD COUNT 4.06 x10e6/uL (3.6-5.1)
[2018-12-11 06:53] LABS: ANION GAP 12.5 mmol/L (8-16); BLOOD UREA NITROGEN 14 mg/dL (7-26); BUN/CREATININE RATIO 18 (6-25); CALCIUM 8.9 mg/dL (8.4-10.2); CARBON DIOXIDE 25 mmol/L (22-29); CHLORIDE 102 mmol/L (98-107); CREATININE, SERUM 0.77 mg/dL (0.57-1.11); EST GLOMERULAR FILTRATION RATE > 60 ML/MIN (60-); GLUCOSE 170 mg/dL (74-118); POTASSIUM 3.5 mmol/L (3.5-5.1); SODIUM 136 mmol/L (136-145)
[2018-12-11] MEDS: INSULIN REGULAR, HUMAN 100 UNIT/1 ML 3ML VIAL SQ SCH ×4 (07:30→21:47)
--- NOTE | 2018-12-11 09:05 | NUR ---
Pt received resting in bed. Noted with right foot second toe amputation, site with open wound. Alert and oriented x4. Oriented to staff and surroundings. Encouraged to press call farrell if help needed. Call farrell within reach. All meds given as ordered. Will monitor
[2018-12-11] MEDS: VANCOMYCIN 1GM/NS 250 ML 250 ML IV SCH ×2 (09:06→21:30)
[2018-12-11] MEDS: ASPIRIN 81 MG ENTERIC COATED PO SCH (09:06)
[2018-12-11] MEDS: FAMOTIDINE 20 MG TAB PO SCH ×2 (09:06→18:18)
[2018-12-11] MEDS: AMLODIPINE BESYLATE 10 MG TAB PO SCH (09:07)
[2018-12-11] MEDS: ROPINIROLE HCL 0.25 MG TAB PO SCH (09:07)
[2018-12-11] MEDS: DOCUSATE SODIUM 100 MG CAP PO SCH ×2 (09:07→18:18)
--- NOTE | 2018-12-11 15:02 | Progress Note ---
DATE: December 11, 2018 CARDIOLOGY PROGRESS NOTE SUBJECTIVE: Patient overall feels well. Seen eating at the bedside. No chest pain or shortness of breath. Still with mild lower extremity wound pain. OBJECTIVE VITAL SIGNS: Temperature is 98, heart rate 84, respirations are 20, blood pressure is 140/75, oxygen saturation is 97% on room air. GENERAL: Well-appearing and in no apparent distress. CARDIOVASCULAR: Regular rate and rhythm. LUNGS: Clear to auscultation. ABDOMEN: Soft and nontender. EXTREMITIES: Right extremity wound wrapped and dressed. MEDICATIONS: Reviewed. LABORATORY VALUES: Hemoglobin 12.5. Creatinine 0.77. IMPRESSION 1. Peripheral arterial disease. 2. Diabetic foot wound. 3. Hypertension. 4. Hyperlipidemia. 5. Obesity. RECOMMENDATIONS: Her peripheral angiography revealed stable findings from her previous revascularization. She essentially has patency of the superficial femoral artery and 1-vessel runoff in the anterior tibial vessel, which provides flow into the entire plantar arch. Continue antibiotics and wound treatment per podiatry. No further interventions are needed at this point in time. Job#: [id number] [place]
--- NOTE | 2018-12-11 17:13 | Progress Note ---
DATE: December 11, 2018 SUBJECTIVE: No new complaints at this time. OBJECTIVE VITAL SIGNS: Stable. Afebrile. GENERAL: A and O times 3. NAD. HEENT: Normocephalic and atraumatic. NECK: Supple. ABDOMEN: Soft, nontender and nondistended. RESPIRATORY: Symmetrical expansion. No distress. PSYCHIATRIC: Normal affect. EXTREMITIES: Nonhealing amputation site, 2nd digit. Erythema seems to be subsiding quite well. There is no . There is no active drainage. The wound base is fibrotic, however. Dr. Miller of interventional cardiology has evaled, and at this point apparently has a patent circulation inclusive of the plantar arch. LABORATORY FINDINGS: Transient still elevated blood sugar. Most recent blood sugars have been 281 and 294. Within the last 48 hours, lowest recorded blood sugar reading is 138. ASSESSMENT 1. Diabetic patient with peripheral arterial disease. 2. Nonhealing 2nd digit amputation site, right foot. PLAN: Continue with aggressive wound care. It seems like with regards to circulation, there is nothing further that needs to be done per interventional cardiology. As far as her weightbearing status, partial weightbearing at this point is adequate, particularly due to the patient's age and having difficulty in nonweightbearing to such extremity. Will continue to follow and monitor. May need long-term care. Perhaps, also hyperbarics to augment when healing might be of benefit. In the interim, will continue to follow and monitor. Job#: [id number] TATYANA
[2018-12-11] MEDS: COLLAGENASE OINTMENT 30 GM TUBE TP SCH (18:11)
[2018-12-11] MEDS: LIDOCAINE 5% OINT TOP SCH (18:11)
--- NOTE | 2018-12-11 18:15 | NUR ---
Pt called asking if I "cut the medication with anything." Advised pt that the medication is diluted with 10ML NS. Pt stated that "i just feel that street when you give it but it does not last." Will attempt to get pain medication increased
[2018-12-11] MEDS: SODIUM CHLORIDE 0.9% 1000ML 1,000 ML IV SCH (18:18)
--- NOTE | 2018-12-11 18:24 | NUR ---
Pt resting in bed without complaints. All meds given as ordered. Call farrell within reach. Right foot second toe site dressing done as ordered. Will endorse to next shift
--- NOTE | 2018-12-11 19:05 | NUR ---
Completed bedside rounds with morning nurse. Pt lying in bed quietly with eyes closed. Res even and unlabored. NO distress noted. Call farrell within reach. Will continue to monitor.
[2018-12-11] MEDS: INSULIN DETEMIR 100 UNIT/ML PEN SQ SCH (21:31)
[2018-12-12] VITALS (8 sets, daily range): BP systolic 122–154; BP diastolic 58–92
[2018-12-12] MEDS: ZOLPIDEM TARTRATE 5 MG TAB PO PRN ×2 (00:35→23:20)
[2018-12-12] MEDS: HYDROMORPHONE 2MG/ML 2 MG/ML ML IV PRN ×3 (00:35→06:55)
[2018-12-12] MEDS: PIPER-TAZ 3.375 GM 50 ML IV SCH ×4 (01:00→17:27)
--- NOTE | 2018-12-12 07:27 | NUR ---
IM Progress Note O/N no events; pain controlled REVIEW OF SYSTEMS: Denies any fever, chills, sweats, nausea, vomiting, diarrhea, headache, chest pain, vision changes, skin rash. PHYSICAL EXAMINATION VITAL SIGNS: Have been reviewed. GENERAL: A tired-appearing woman resting in bed. HEENT: Anicteric. CARDIOVASCULAR: Normal S1 and S2. LUNGS: Moderate breath sounds. ABDOMEN: Soft, nontender, nondistended. EXTREMITIES: She has trace edema of the right foreleg. She has 2nd digit on the right foot absent. She has some induration at that surgical site. Minimal erythema. There is tenderness at the site. No discharge or odor. SKIN: Dry. PSYCHIATRIC: Flat affect. NEUROLOGIC: Alert and oriented x3. Moving all extremities. LABS: Reviewed. MEDICATIONS: Reviewed. ASSESSMENT: This is a 58-year-old woman. 1. Peripheral arterial disease secondary to cigarette use. 2. Peripheral arterial disease secondary to diabetes mellitus. 3. Right foot pain. 4. Chronic obstructive pulmonary disease. 5. History of shortness and obesity. Body mass index 33.6. 6. Ambulatory dysfunction. 7. Acute kidney injury. PLAN 1. Antibiotics. 2. Follow up cultures. 3. Podiatry consultation. 4. Obtain hemoglobin A1c and lipid panel. 5. Diabetes control. 6. Continue cigarette cessation and counseling. 7. Follow up podiatry recommendations. 8. Use Lovenox and Pepcid for prophylaxis. 9. Rehydrate the patient. Control glucose. 12/09 Hba1c/LDL 8.3/92; check labs; f/u podiatry. 12/10 f/u vasc recs. resume long acting insulin. 12/[address] to plantar vessels; cont IV abx; vanco trough 6 12/12 d/c planning; d/c IV dilaudid; cont oral pain meds. Med resort pending Adam Houser MD, PhD.
[2018-12-12] MEDS ORDERED: HYDROCODONE/APAP 10MG-325MG TAB PO PRN (07:45)
[2018-12-12] MEDS: ASPIRIN 81 MG ENTERIC COATED PO SCH (08:15)
[2018-12-12] MEDS: VANCOMYCIN 1GM/NS 250 ML 250 ML IV SCH ×2 (08:15→21:55)
[2018-12-12] MEDS: INSULIN REGULAR, HUMAN 100 UNIT/1 ML 3ML VIAL SQ SCH ×4 (08:15→21:55)
[2018-12-12] MEDS: DOCUSATE SODIUM 100 MG CAP PO SCH ×2 (08:15→16:02)
[2018-12-12] MEDS: FAMOTIDINE 20 MG TAB PO SCH ×2 (08:15→16:02)
--- NOTE | 2018-12-12 08:15 | NUR ---
Pt received resting in bed. All meds given as ordered. Attempted to get order to increase dose of Dilaudid to 1mg Q4hr but Dr. Houser stated to Discontinue the pain medication because pt did not have surgery. [place] increased to 10/325mg. Emotional support given. Call farrell within reach. Will monitor
[2018-12-12] MEDS: COLLAGENASE OINTMENT 30 GM TUBE TP SCH (08:16)
[2018-12-12] MEDS: ROPINIROLE HCL 0.25 MG TAB PO SCH (08:16)
[2018-12-12] MEDS: AMLODIPINE BESYLATE 10 MG TAB PO SCH (08:16)
[2018-12-12] MEDS: LIDOCAINE 5% OINT TOP SCH (08:16)
[2018-12-12] MEDS: HYDROCODONE/APAP 10MG-325MG TAB PO SCH ×3 (11:35→20:00)
[2018-12-12] MEDS: SODIUM CHLORIDE 0.9% 1000ML 1,000 ML IV SCH (11:50)
[2018-12-12] MEDS: ALPRAZOLAM 0.5 MG TAB PO PRN ×2 (11:50→21:49)
--- NOTE | 2018-12-12 13:46 | Progress Note ---
DATE: December 12, 2018 CARDIOLOGY PROGRESS NOTE SUBJECTIVE: The patient reports feeling quite anxious this morning, just being hospitalized and everything else have been ongoing. Denies any chest pain, palpitations, shortness of breath. Does endorse some pain to her right lower extremity. PHYSICAL EXAMINATION VITAL SIGNS: Temperature 98.0, pulse 87, respiratory rate 22, blood pressure 145/92, oxygen saturation 99% on room air. GENERAL: Alert and oriented x3, resting comfortably in bed, does not appear to be in any acute distress. NECK: Supple. No JVD noted. CARDIOVASCULAR: Regular rate and rhythm. Normal S1 and S2. No murmurs. No gallops. LUNGS: Diminished breath sounds anterior posterior lower lobe, otherwise clear to auscultation. ABDOMEN: Rounded, soft, nontender. Normoactive bowel sounds. EXTREMITIES: Lower extremities trace edema noted. Right lower extremity with a dressing in place and absent pedal pulses. CARDIOVASCULAR MEDICATIONS 1. Amlodipine 10 mg p.o. daily. 2. Aspirin 81 mg p.o. daily. LABS: No labs from today. IMPRESSION 1. disease. 2. Diabetic foot ulcer. 3. Hypertension. 4. Hyperlipidemia. 5. Obesity. 6. Anxiety. RECOMMENDATION: Primary team managing anxiety, patient on Xanax as needed. The patient had a stable finding on peripheral angiogram with a patent superficial femoral and also anterior tibial vessels on the right lower extremity which feeds the entire plantar arch. No interventions were indicated at that time. Continue medical care and continue the above listed cardiac medication. Continue wound care and also antimicrobial therapy as recommended. We will continue to follow this patient. Job#: [id number] MARIBEL
[2018-12-12] MEDS: DIPHENHYDRAMINE HCL 25 MG CAP PO PRN (16:02)
--- NOTE | 2018-12-12 19:05 | NUR ---
Patient visited in room during nursing rounds. Patient alert and oriented x3. Site of right 2nd toe amputation covered with dressing (C/D/I). Informed patient I will do dressing change tonight. On IVF (NS @50ml/hr). Patient having frequent pain on wound site and will be medicated accordingly. Call farrell within reach. Will monitor closely.
--- NOTE | 2018-12-12 20:58 | NUR ---
Spoke with Dr. Houser regarding patient claim that [place] 10/325mg PO does not help with her pain. MD aware and ordered to start pt on Tramadol 50mg PO Q6hr prn.
--- NOTE | 2018-12-12 21:02 | NUR ---
Spoke with Dr. Houser over the phone and informed about Vanc trough level = 19.5. Dr. Houser stated its ok for patient to continue on Vancomycin IV 1gm tonight.
[2018-12-12] MEDS: TRAMADOL HCL 50 MG TAB PO PRN (21:49)
[2018-12-12] MEDS: INSULIN DETEMIR 100 UNIT/ML PEN SQ SCH (21:56)
--- NOTE | 2018-12-12 23:40 | NUR ---
Performed dressing change on right 2nd toe amputated site with santyl + lidocaine ointment, gauze, kerlix and tape. Patient tolerated dressing change fine.
[2018-12-13] VITALS (7 sets, daily range): BP systolic 124–175; BP diastolic 59–78
[2018-12-13] MEDS: PIPER-TAZ 3.375 GM 50 ML IV SCH ×4 (00:30→16:22)
[2018-12-13] MEDS: HYDROCODONE/APAP 10MG-325MG TAB PO SCH ×6 (00:30→20:15)
--- NOTE | 2018-12-13 02:10 | NUR ---
Patient requested to stop IV fluid. Patient refused to be re-connected on IVF. Patient states she does not need it and that she drinks a lot of fluids.
--- NOTE | 2018-12-13 04:45 | NUR ---
Dr. Houser came and visited patient in room. aware of patient condition.
[2018-12-13] MEDS: FAMOTIDINE 20 MG TAB PO SCH ×2 (06:12→16:22)
[2018-12-13] MEDS: INSULIN REGULAR, HUMAN 100 UNIT/1 ML 3ML VIAL SQ SCH ×4 (08:15→21:14)
--- NOTE | 2018-12-13 08:15 | NUR ---
Pt received resting in bed. Alert and oriented x4. All meds given as ordered. Pt with right foot dressing clean, dry, and intact. Call farrell within reach. Will monitor closely.
[2018-12-13] MEDS: AMLODIPINE BESYLATE 10 MG TAB PO SCH (08:23)
[2018-12-13] MEDS: ASPIRIN 81 MG ENTERIC COATED PO SCH (08:23)
[2018-12-13] MEDS: ROPINIROLE HCL 0.25 MG TAB PO SCH (08:23)
[2018-12-13] MEDS: DOCUSATE SODIUM 100 MG CAP PO SCH ×2 (08:23→16:22)
[2018-12-13] MEDS: VANCOMYCIN 1GM/NS 250 ML 250 ML IV SCH ×2 (08:23→21:13)
[2018-12-13] MEDS: SODIUM CHLORIDE 0.9% 1000ML 1,000 ML IV SCH ×2 (08:24→21:13)
[2018-12-13] MEDS: DIPHENHYDRAMINE HCL 25 MG CAP PO PRN (08:24)
[2018-12-13] MEDS: ALPRAZOLAM 0.5 MG TAB PO PRN (08:24)
[2018-12-13] MEDS: COLLAGENASE OINTMENT 30 GM TUBE TP SCH (11:58)
[2018-12-13] MEDS: LIDOCAINE 5% OINT TOP SCH (11:58)
--- NOTE | 2018-12-13 12:13 | Progress Note ---
DATE: December 13, 2018 CARDIOLOGY PROGRESS NOTE SUBJECTIVE: Patient reports that she feels a little bit better this morning. Has not had any more anxiety attacks. Denies any chest pain or palpitation. Does endorse some pain to the right lower extremity. OBJECTIVE VITAL SIGNS: Temperature 96.3, pulse 69, respiratory rate 18, blood pressure 175/78, oxygen saturation 99% on room air. GENERAL: Alert and oriented x3. Resting comfortably in bed. Does not appear to be in any acute distress. NECK: Supple. No JVD noted. CARDIOVASCULAR: Regular rate and rhythm. Normal S1 and S2. LUNGS: Diminished breath sounds throughout. No wheezing, no rhonchi or crackles. ABDOMEN: Rounded, soft, nontender. EXTREMITIES: Lower extremities, trace edema noted. Right lower extremity with dressing in place and absent pedal pulses. CARDIOVASCULAR MEDICATIONS 1. Amlodipine 10 mg p.o. daily. 2. Aspirin 81 mg p.o. daily. LABS: WBC 9.54, hemoglobin 12.5, hematocrit 38.2, platelets 167. IMPRESSION 1. Peripheral arterial disease. 2. Diabetic foot ulcer. 3. Hypertension. 4. Hyperlipidemia. 5. Obesity. 6. Anxiety. RECOMMENDATION: Patient had a stable finding on peripheral angiogram with a patent superficial femoral artery and also the anterior tibial vessels on the right lower extremity which feeds the entire plantar arch was opened. No interventions were indicated at that time. We will continue the above medications. In addition, we will optimize care of hypertension and also initiate statin therapy. Continue to monitor wound care and also continue antimicrobial therapy. We will continue to follow this patient. Dictated by: Rachel Rascon NP Job#: [id number] MARIBEL
--- NOTE | 2018-12-13 14:25 | NUR ---
Visit made by the Spiritual Care Department Pastoral Visitor, Cristiana Johnson. PV refused visit. WILLA Levy Spiritual Care Department O: [phone] Pager: [phone] ([phone] number calling from)
--- NOTE | 2018-12-13 19:05 | NUR ---
Patient visited in room during nursing rounds. Patient alert and oriented x3. Site of right 2nd toe amputation covered with dressing (C/D/I). On IVF (NS@50ml/hr). Patient having frequent pain on wound site and will be medicated accordingly. Call farrell within reach. Will monitor closely.
[2018-12-13] MEDS: ATORVASTATIN 20 MG TAB PO SCH (21:13)
[2018-12-13] MEDS: INSULIN DETEMIR 100 UNIT/ML PEN SQ SCH (21:14)
[2018-12-13] MEDS: ZOLPIDEM TARTRATE 5 MG TAB PO PRN (23:24)
[2018-12-14] VITALS (7 sets, daily range): BP systolic 115–169; BP diastolic 61–85
[2018-12-14] MEDS: HYDROCODONE/APAP 10MG-325MG TAB PO SCH ×6 (00:17→20:15)
[2018-12-14] MEDS: PIPER-TAZ 3.375 GM 50 ML IV SCH ×4 (00:26→18:04)
[2018-12-14] MEDS: ALPRAZOLAM 0.5 MG TAB PO PRN ×2 (01:50→21:12)
[2018-12-14] MEDS: DIPHENHYDRAMINE HCL 25 MG CAP PO PRN (02:17)
[2018-12-14] MEDS: TRAMADOL HCL 50 MG TAB PO PRN (02:17)
[2018-12-14] MEDS: FAMOTIDINE 20 MG TAB PO SCH ×2 (06:15→16:47)
--- NOTE | 2018-12-14 06:22 | NUR ---
Called Dr. Houser and informed Vanc trough level was 23.8. MD aware and ordered to stop or d/c Vancomycin 1gm IV Q12hr.
--- NOTE | 2018-12-14 07:23 | NUR ---
PATIENT IN BED RESTING WITH EYES CLOSED, NO RESPIRATORY DISTRESS OBSERVED. BED IN LOWER POSITION, CALL LIGHT AT REACH.
[2018-12-14] MEDS: INSULIN REGULAR, HUMAN 100 UNIT/1 ML 3ML VIAL SQ SCH ×4 (07:30→20:15)
[2018-12-14] MEDS: DOCUSATE SODIUM 100 MG CAP PO SCH ×2 (09:42→17:38)
[2018-12-14] MEDS: LOSARTAN POTASSIUM 25 MG TAB PO SCH (09:42)
[2018-12-14] MEDS: ASPIRIN 81 MG ENTERIC COATED PO SCH (09:42)
[2018-12-14] MEDS: AMLODIPINE BESYLATE 10 MG TAB PO SCH (09:43)
[2018-12-14] MEDS: ROPINIROLE HCL 0.25 MG TAB PO SCH (09:43)
[2018-12-14] MEDS: LIDOCAINE 5% OINT TOP SCH (12:24)
[2018-12-14] MEDS: COLLAGENASE OINTMENT 30 GM TUBE TP SCH (12:24)
--- NOTE | 2018-12-14 12:27 | NUR ---
DRESSING CHANGED TO RIGHT FOOT ORDERED. PATIENT SITTING UP IN BED EATING LUNCH. CALL LIGHT AT REACH.
--- NOTE | 2018-12-14 14:05 | NUR ---
Nutrition Screen Note RD Recommendation for Physician: -Continue ADA diet as ordered -Offered diabetic education but pt refused on 12/14. Plan of Care: RD following, monitoring for tolerance and adequacy Nutrition reason for involvement: LOS Primary Diagnose(s): Peripheral arterial disease secondary to diabetes mellitus, diabetic foot ulcer PMH: DM, diabetic neuropathy, stroke with L side weakness, CHF, HLD, DJD, chronic pain disorder, PAD, gangrenous toe of 2nd R digit s/p amputation Ht: 67in Wt: 215lb BMI: 33.7kg/m2 IBW: 135lb RD Assessment: (12/14/18) Chart reviewed. Labs and meds reviewed. 58yo F, who is admitted for R foot pain s/p toe amputation on 02/2018. HbA1c at 8.3%. Visited pt in the room. Pt reports good appetite with ~75-100% recorded meal intake since admission. No GI complains noted. LBM 1/20, normal per pt. Pt denies any chewing or swallowing difficulty. No recent weight loss reported. Offered diabetic education but pt was not interested. Will continue to monitor and follow. Current Diet: ADA diet Malnutrition Evaluation (12/14/2018) The patient does not meet criteria for a specified degree of malnutrition at this time. Will re-evaluate at follow-up as appropriate. Diet Education Needs Assessment: Diet education indicated, pt is not interested. Nutrition Care Level: low Signed: Erin Diaz, MS, RD, LD
--- NOTE | 2018-12-14 15:35 | NUR ---
PATIENT IN BED RESTING WITH NO RESPIRATORY DISTRESS. CALL LIGHT AT REACH.
--- NOTE | 2018-12-14 17:08 | NUR ---
IM Progress Note O/N no events; pain controlled REVIEW OF SYSTEMS: Denies any fever, chills, sweats, nausea, vomiting, diarrhea, headache, chest pain, vision changes, skin rash. PHYSICAL EXAMINATION VITAL SIGNS: Have been reviewed. GENERAL: A tired-appearing woman resting in bed. HEENT: Anicteric. CARDIOVASCULAR: Normal S1 and S2. LUNGS: Moderate breath sounds. ABDOMEN: Soft, nontender, nondistended. EXTREMITIES: She has trace edema of the right foreleg. She has 2nd digit on the right foot absent. She has some induration at that surgical site. Minimal erythema. There is tenderness at the site. No discharge or odor. SKIN: Dry. PSYCHIATRIC: Flat affect. NEUROLOGIC: Alert and oriented x3. Moving all extremities. LABS: Reviewed. MEDICATIONS: Reviewed. ASSESSMENT: This is a 58-year-old woman. 1. Peripheral arterial disease secondary to cigarette use. 2. Peripheral arterial disease secondary to diabetes mellitus. 3. Right foot pain. 4. Chronic obstructive pulmonary disease. 5. History of shortness and obesity. Body mass index 33.6. 6. Ambulatory dysfunction. 7. Acute kidney injury. PLAN 1. Antibiotics. 2. Follow up cultures. 3. Podiatry consultation. 4. Obtain hemoglobin A1c and lipid panel. 5. Diabetes control. 6. Continue cigarette cessation and counseling. 7. Follow up podiatry recommendations. 8. Use Lovenox and Pepcid for prophylaxis. 9. Rehydrate the patient. Control glucose. 12/09 Hba1c/LDL 8.3/92; check labs; f/u podiatry. 12/10 f/u vasc recs. resume long acting insulin. 12/[address] to plantar vessels; cont IV abx; vanco trough 6 12/12 d/c planning; d/c IV dilaudid; cont oral pain meds. Med resort pending 12/13 oral narcotics only; had BM O/N d/c planning 12/14 HH and PT; d/c planning; d/w . Adam Houser MD, PhD.
--- NOTE | 2018-12-14 19:08 | NUR ---
PT IS SITTING UP AT THE SIDE OF THE BED. NO RESPIRATORY DISTRESS NOTED. BED IN LOWEST POSITION, LOCKED, BED ALARM ON, AND CALL LIGHT WITHIN REACH. WILL CONTINUE TO MONITOR.
[2018-12-14] MEDS: ATORVASTATIN 20 MG TAB PO SCH (20:15)
[2018-12-14] MEDS: INSULIN DETEMIR 100 UNIT/ML PEN SQ SCH (21:00)
[2018-12-14] MEDS: ZOLPIDEM TARTRATE 5 MG TAB PO PRN (22:35)
[2018-12-15] VITALS: BP 133/79
[2018-12-15] MEDS: PIPER-TAZ 3.375 GM 50 ML IV SCH (00:17)
[2018-12-15] MEDS: HYDROCODONE/APAP 10MG-325MG TAB PO SCH ×3 (00:18→08:00)
--- NOTE | 2018-12-15 01:02 | Progress Note ---
DATE: December 14, 2018 CARDIOLOGY PROGRESS NOTE SUBJECTIVE: No major events overnight. OBJECTIVE: VITAL SIGNS: Temperature is 96.3, pulse 69, respiratory rate 18, blood pressure 175/78, satting 99% on room air. GENERAL: Well developed, well nourished, in no acute distress. CARDIOVASCULAR: Regular rate and rhythm. No murmurs, rubs, or gallops. LUNGS: Clear to auscultation anteriorly. ABDOMEN: Soft, nontender, nondistended. NEURO AND PSYCH: Alert and oriented to person, place, and time. Normal affect. CARDIOVASCULAR MEDICATIONS: Reviewed. LABORATORY DATA: Reviewed. ASSESSMENT AND PLAN: 1. Peripheral arterial disease. 2. Diabetic foot ulcer. 3. Hypertension. 4. Hyperlipidemia. 5. Obesity. 6. Anxiety. Most recent peripheral angiogram showed adequate flow. No further interventions needed at this time. Continue optimal medical therapy and risk factor control. Antibiotics per primary team. Thank you for this consult. Will continue to follow. Job#: [id number]
[2018-12-15 04:00] VITALS: BP 182/81
[2018-12-15 04:34] VITALS: BP 133/79
[2018-12-15 06:17] VITALS: BP 140/79
[2018-12-15] MEDS ORDERED: LIPITOR20 MG PO (06:51)
[2018-12-15] MEDS ORDERED: Collagenase TP (06:51)
[2018-12-15] MEDS ORDERED: CIPRO500 MG PO (06:51)
[2018-12-15] MEDS ORDERED: MINOCYCLINE HCL50 MG PO (06:51)
[2018-12-15] MEDS ORDERED: FAMOTIDINE20 MG PO (06:51)
[2018-12-15] MEDS ORDERED: ALPRAZOLAM0.5 MG PO (06:51)
--- NOTE | 2018-12-15 06:55 | NUR ---
DIscharge summary Principal Dx: ASSESSMENT: This is a 58-year-old woman. 1. Peripheral arterial disease secondary to cigarette use. 2. Peripheral arterial disease secondary to diabetes mellitus. 3. Right foot pain. 4. Chronic obstructive pulmonary disease. 5. History of shortness and obesity. Body mass index 33.6. 6. Ambulatory dysfunction. 7. Acute kidney injury. Secondary Dx: 1.PAD cc and HPI: refer to H&P Hospital course: ASSESSMENT: This is a 58-year-old woman. 1. Peripheral arterial disease secondary to cigarette use. 2. Peripheral arterial disease secondary to diabetes mellitus. 3. Right foot pain. 4. Chronic obstructive pulmonary disease. 5. History of shortness and obesity. Body mass index 33.6. 6. Ambulatory dysfunction. 7. Acute kidney injury. PLAN 1. Antibiotics. 2. Follow up cultures. 3. Podiatry consultation. 4. Obtain hemoglobin A1c and lipid panel. 5. Diabetes control. 6. Continue cigarette cessation and counseling. 7. Follow up podiatry recommendations. 8. Use Lovenox and Pepcid for prophylaxis. 9. Rehydrate the patient. Control glucose. 12/09 Hba1c/LDL 8.3; check labs; f/u podiatry. 12/10 f/u vasc recs. resume long acting insulin. 12/[address] to plantar vessels; cont IV abx; vanco trough 6 12/12 d/c planning; d/c IV dilaudid; cont oral pain meds. Med resort pending 12/13 oral narcotics only; had BM O/N d/c planning 12/14 HH and PT; d/c planning; d/w . 12/15 home on cipro and minocycline; condition: stable f.u: pcp 1 week and 1 week d/c time>35mins d/c med;s see KHADRA Houser MD, PhD.
[2018-12-15] MEDS: NIFEDIPINE CR 30 MG TAB PO SCH ×2 (07:00→09:00)
--- NOTE | 2018-12-15 07:13 | NUR ---
PATIENT IN BED RESTING WITH NO RESPIRATORY DISTRESS. BED IN LOWER POSITION, CALL LIGHT AT REACH.
[2018-12-15 07:15] VITALS: BP 129/77
[2018-12-15] MEDS: INSULIN REGULAR, HUMAN 100 UNIT/1 ML 3ML VIAL SQ SCH (07:30)
[2018-12-15] MEDS: FAMOTIDINE 20 MG TAB PO SCH (07:51)
[2018-12-15 09:00] VITALS: BP 129/77
[2018-12-15] MEDS: LOSARTAN POTASSIUM 25 MG TAB PO SCH (09:00)
[2018-12-15] MEDS: DOCUSATE SODIUM 100 MG CAP PO SCH (09:02)
[2018-12-15] MEDS: ASPIRIN 81 MG ENTERIC COATED PO SCH (09:02)
[2018-12-15] MEDS: ROPINIROLE HCL 0.25 MG TAB PO SCH (09:04)
--- NOTE | 2018-12-15 09:25 | NUR ---
PATIENT DISCHARGED HOME. DISCHARGE INSTRUCTIONS, PRESCRIPTIONS, AND FOLLOW UP GIVEN TO PATIENT, SHE VERBALIZED UNDERSTANDING. IV TO RIGHT HAND REMOVED WITH TIP INTACT. ALL PERSONAL ITEMS TAKEN WITH PATIENT. LEFT UNIT ON WHEEL CHAIR TO FRONT LOBBY IN STABLE CONDITION.
--- NOTE | 2018-12-15 16:03 | NUR ---
-ARRANGED HOME HEALTH WITH [facility] STAFF [phone] FAX [phone] DRESSING CHANGES Q DAY AND HOME PT/OT CHOICE LETTER SIGNED AND ON CHART
--- NOTE | 2019-01-25 19:15 | Operative Report ---
DATE OF PROCEDURE: 12/10/2018 SURGEON: Silvio Miller DO PROCEDURES PERFORMED: 1. Conscious sedation 30 minutes. 2. Abdominal aortography. 3. Third-order peripheral angiography of the right lower extremity. PREPROCEDURE DIAGNOSES: Peripheral arterial disease and foot wound. POSTPROCEDURE DIAGNOSES: Peripheral arterial disease and foot wound. ESTIMATED BLOOD LOSS: Less than 20 mL. SPECIMEN: None. PROCEDURE IN DETAIL: After informed consent was obtained, the patient was brought to the cardiac catheterization laboratory in a fasting, nonsedated state. Bilateral groins were prepped and draped in the usual sterile fashion. 2% lidocaine was injected over the left anterior groin for local anesthesia. Using micropuncture needle, the left common femoral artery was accessed via modified Seldinger technique and a 5-Lao sheath was placed. Next, diagnostic abdominal aortography was performed using Omni Flush catheter. Next, this was taken up over the iliac bifurcation. Third-order peripheral angiography was performed. This revealed a patent stent in the right mid SFA. There was also patency of the iliac and popliteal vessels. The anterior tibial was patent and fills the entire plantar arch. The tibioperoneal trunk and posterior tibial vessel were 100% occluded. There were faint collaterals filling the proximal portion of the peroneal vessel, however, there was a subsequent chronic occlusion of the mid to distal peroneal vessel. The patient tolerated the procedure well. No immediate complications. She was transferred back to room in stable condition. IMPRESSION AND RECOMMENDATIONS: The patient was found to have stable findings from her previous catheterization. She has a patent stent in the femoral system and her anterior tibial fills the entire plantar arch. Continue aggressive medical therapy. No further interventions are required at this point in time. Silvio Miller DO BM/MODL /[id number]
== END 2018-12-15 09:26 | disposition home health service (06) | DRG 74 ==
LOC: ER 21:01 → ERHOLD 12-08 04:15 → MED/SURG3 12-08 13:02
PROVIDERS: ADMIT Internal Medicine; ATTEND Internal Medicine
PROC: B41F1ZZ Fluoroscopy of Right Lower Extremity Arteries using Low Osmolar Contrast (ICD-10-PCS; principal; 2018-12-10)
PROC: B4101ZZ Fluoroscopy of Abdominal Aorta using Low Osmolar Contrast (ICD-10-PCS; 2018-12-10)
DX: E11.42 Type 2 diabetes mellitus with diabetic polyneuropathy (principal); L03.115 Cellulitis of right lower limb; I69.354 Hemiplegia and hemiparesis following cerebral infarction affecting left non-dominant side; N17.9 Acute kidney failure, unspecified; M79.604 Pain in right leg; E11.621 Type 2 diabetes mellitus with foot ulcer; L97.519 Non-pressure chronic ulcer of other part of right foot with unspecified severity; J44.9 Chronic obstructive pulmonary disease, unspecified; Z89.421 Acquired absence of other right toe(s); M25.552 Pain in left hip; E11.65 Type 2 diabetes mellitus with hyperglycemia; Z88.5 Allergy status to narcotic agent; I50.9 Heart failure, unspecified; Z72.0 Tobacco use; E78.5 Hyperlipidemia, unspecified; M47.817 Spondylosis without myelopathy or radiculopathy, lumbosacral region; E66.9 Obesity, unspecified; Z68.33 Body mass index [BMI] 33.0-33.9, adult; I11.0 Hypertensive heart disease with heart failure; Z79.4 Long term (current) use of insulin
CPT/HCPCS: 36415; 75710; 80048; 80053; 80061; 80202; 82948; 83036; 85025; 85610; 85651; 85730; 87040; 93925; 96361; 97139; 99284; C1769; J0360; J1200; J2001; J2250; J2543; J3370; J7030; J7050; Q9967

== ENCOUNTER 2019-03-19 18:22 | Inpatient (IN) | payer MEDICARE ==
[~2019-03-19] VITALS: Ht 170.2 cm; Wt 99.3 kg
[~2019-03-19 18:22] MED LIST changes: +ALPRAZOLAM0.5 MG PO; +AMLODIPINE BESY10 MG PO; +BUPROPION HCL150 M2 PO; +CIPRO500 MG PO; +Collagenase TP; +FAMOTIDINE20 MG PO; +HYDROCODON-ACE1 EAC9 PO; +LANTUS 3ML100 UNITS/ SQ; +LIPITOR20 MG PO; +MINOCYCLINE HCL50 MG PO
[2019-03-19] MEDS ORDERED: ALBUTEROL SULF 0.083% NEB SOLN 3 ML NEB NEB STA (19:57)
[2019-03-19] MEDS ORDERED: IPRATROPIUM BROMIDE 0.02% 2.5 ML NEB NEB ONE (20:00)
[2019-03-19] MEDS ORDERED: METHYLPREDNISOLONE SOD SUCC 125 MG/2ML VIAL IV ONE (20:00)
[2019-03-19 20:21] VITALS: BP 142/78
--- NOTE | 2019-03-19 20:29 | Diagnostic Imaging Report ---
Examination: Single AP view of the chest. COMPARISON: September 01, 2018 INDICATION: Shortness of breath DISCUSSION: Lines/tubes: None. Lungs: Pulmonary venous congestion. Left lower lung opacity. Pleura: Possible left effusion. Heart and mediastinum: The heart and the mediastinum are unremarkable. Bones and soft tissues: No acute bony abnormalities. IMPRESSION: 1. Pulmonary venous congestion 2. Left lower lung opacity may reflect effusion and atelectasis/pneumonia Signed by: Dr. Les Colon M.D. on 03/19/2019 8:26 PM
[2019-03-19 20:38] LABS: BASOPHILS # (AUTO) 0.1 (0.0-0.1); BASOPHILS % 0.6 % (0.0-1.0); EOSINOPHILS # (AUTO) 0.1 (0.0-0.4); EOSINOPHILS % 0.9 % (0.0-6.0); HEMATOCRIT 44.3 % (34.2-44.1); LYMPHOCYTES # (AUTO) 1.3 (1.0-3.2); LYMPHOCYTES % 14.1 % (18.0-39.1); MEAN CORPUSCULAR HEMOGLOBIN 30.2 pg (28-32); MEAN CORPUSCULAR HGB CONC 31.6 g/dL (31-35); MEAN CORPUSCULAR VOLUME 95.7 fL (81-99); MONOCYTES # (AUTO) 0.4 (0.2-0.8); MONOCYTES % 4.6 % (4.4-11.3); NEUTROPHILS # (AUTO) 7.2 (2.1-6.9); NEUTROPHILS % 78.8 % (38.7-80.0); PLATELET COUNT 188 x10e3/uL (140-360); RED BLOOD COUNT 4.63 x10e6/uL (3.6-5.1); RED CELL DISTRIBUTION WIDTH 15.9 % (11.7-14.4)
[2019-03-19 20:42] LABS: BILIRUBIN,URINE NEGATIVE (NEGATIVE); CLARITY,URINE HAZY (CLEAR); COLOR,URINE YELLOW (YELLOW); KETONES,URINE NEGATIVE (NEGATIVE); LEUKOCYTE ESTERASE ,URINE NEGATIVE (NEGATIVE); NITRITE,URINE NEGATIVE (NEGATIVE); PROTEIN,URINE DIPSTICK 3+ (NEGATIVE); URINE UROBILINOGEN 0.2 mg/dL (0.2 - 1)
[2019-03-19 20:49] LABS: BACTERIA,URINE MODERATE /HPF; EPITHELIAL CELLS,URINE MANY /LPF; TRANSITIONAL EPI CELLS,URINE MODERATE
[2019-03-19 20:54] LABS: ALBUMIN 2.6 g/dL (3.5-5.0); ALBUMIN/GLOBULIN RATIO 0.5 (0.8-2.0); ANION GAP 14.7 mmol/L (8-16); CALCIUM 9.1 mg/dL (8.4-10.2); CREATININE, SERUM 1.02 mg/dL (0.57-1.11); POTASSIUM 3.7 mmol/L (3.5-5.1)
[2019-03-19] MEDS ORDERED: ACETAMINOPHEN 325 MG TAB PO PRN (22:00)
[2019-03-19] MEDS ORDERED: DEXTROSE 50% SYRINGE 50 ML IV PRN (22:00)
[2019-03-19] MEDS ORDERED: SODIUM CHLORIDE FLUSH 10 ML SYR INJ PRN (22:00)
[2019-03-19] MEDS ORDERED: ASPIRIN 81 MG CHEW TAB PO ONE (22:00)
[2019-03-19] MEDS: ALBUTEROL SULF 0.083% NEB SOLN 3 ML NEB NEB SCH (23:45)
[2019-03-19] MEDS: ALBUTEROL/IPRATROPIUM 3 ML NEB NEB SCH (23:45)
[2019-03-19] MEDS: IPRATROPIUM BROMIDE 0.02% 2.5 ML NEB NEB SCH (23:45)
[2019-03-19] MEDS: CEFTRIAXONE SOD 1 GM/NS 50 ML 50 ML IV SCH (23:52)
[2019-03-19] MEDS: AZITHROMYCIN 500MG/NS 250 ML 250 ML IV SCH (23:52)
[2019-03-20 01:00] VITALS: BP 135/61
[2019-03-20] MEDS: METHYLPREDNISOLONE SOD SUCC 40 MG/ML VIAL 1ML IV SCH ×4 (01:01→21:33)
[2019-03-20] MEDS ORDERED: ALPRAZOLAM 0.25 MG TAB PO STA (02:14)
[2019-03-20] MEDS: ALBUTEROL/IPRATROPIUM 3 ML NEB NEB SCH ×6 (03:00→23:48)
[2019-03-20] MEDS: ALBUTEROL SULF 0.083% NEB SOLN 3 ML NEB NEB SCH ×6 (03:00→23:48)
[2019-03-20 04:00] VITALS: BP 151/66
[2019-03-20 05:50] LABS: BASOPHILS % 0.3 % (0.0-1.0); HEMATOCRIT 43.1 % (34.2-44.1); HEMOGLOBIN 13.2 g/dL (12.0-16.0); LYMPHOCYTES # (AUTO) 0.3 (1.0-3.2); LYMPHOCYTES % 3.5 % (18.0-39.1); MEAN CORPUSCULAR HEMOGLOBIN 29.5 pg (28-32); MEAN CORPUSCULAR HGB CONC 30.6 g/dL (31-35); MEAN CORPUSCULAR VOLUME 96.4 fL (81-99); MONOCYTES # (AUTO) 0.1 (0.2-0.8); MONOCYTES % 0.7 % (4.4-11.3); NEUTROPHILS # (AUTO) 8.5 (2.1-6.9); NEUTROPHILS % 94.5 % (38.7-80.0); PLATELET COUNT 177 x10e3/uL (140-360); RED BLOOD COUNT 4.47 x10e6/uL (3.6-5.1); RED CELL DISTRIBUTION WIDTH 15.9 % (11.7-14.4)
[2019-03-20] MEDS ORDERED: ALPRAZOLAM 0.25 MG TAB PO SCH (06:00)
[2019-03-20 06:14] LABS: ALBUMIN 2.4 g/dL (3.5-5.0); ALBUMIN/GLOBULIN RATIO 0.5 (0.8-2.0); ANION GAP 15.8 mmol/L (8-16); CALCIUM 8.8 mg/dL (8.4-10.2); CREATININE, SERUM 1.03 mg/dL (0.57-1.11); POTASSIUM 4.8 mmol/L (3.5-5.1)
[2019-03-20 06:17] LABS: CREATINE KINASE MB 1.7 ng/mL (0-5.0)
--- NOTE | 2019-03-20 06:20 | NUR ---
received call from lab with critical glucose 529 at this time. this was passed on to Yo CRUZ
--- NOTE | 2019-03-20 06:33 | NUR ---
Dr. Houser called for bs above 500, ordered to change the current methylprednisone to q12 and give a dose of the ordered insulin sliding scale.
[2019-03-20] MEDS: INSULIN REGULAR, HUMAN 100 UNIT/1 ML 3ML VIAL SQ SCH ×4 (06:54→21:30)
[2019-03-20] MEDS: IPRATROPIUM BROMIDE 0.02% 2.5 ML NEB NEB SCH ×4 (07:00→23:48)
--- NOTE | 2019-03-20 07:14 | NUR ---
patient endorsed to next shift for continuity of care.
--- NOTE | 2019-03-20 07:30 | NUR ---
PT UP IN RECLINER,DENIES PAIN ,C/O ANXIETY NO MEDICATION DUE AT THIS TIME,O2 3L NC IN PLACE.
[2019-03-20 07:50] VITALS: BP 158/70
[2019-03-20] MEDS: ALPRAZOLAM 0.25 MG TAB PO PRN ×2 (08:45→13:56)
[2019-03-20 12:00] VITALS: BP 141/65
--- NOTE | 2019-03-20 14:00 | NUR ---
PT C/O ANXIETY MEDICATED
--- NOTE | 2019-03-20 14:06 | NUR ---
SOCIAL WORK INITIAL ASSESSMENT Freezer Unloader to bedside to discuss plan of care with patient/family. CM/SW role and care transitions discussed. Anticipated discharge plan discussed along with duration of care. CM/SW discussed patients right to make decisions in care. CM/SW work hours given. Patient lives: IN HOUSE WITH EX Admit/Transfer: VIA ED POA/Emergency contact: ALEX DAVIS Current/Previous Home Health: [facility] CARE NURSE DANIEL [phone] PCP/Follow-up Care: [facility] Current/Previous DME:[facility] [employer] Other Services: NONE Employment Status: DISABLED Areas of Concerns: NONE Referral Needs: NONE Education Needs: NONE IMM/CHAN given and signed (if applicable): Goal for discharge: RETURN HOME BACK TO HOSPICE CM/SW left business card at the bedside with contact information. Name and number was also written on the patients whiteboard. Patient verbalized understanding of discussion. CM will follow-up with ongoing discharge and transition of care needs.
[2019-03-20 14:22] LABS: CREATINE KINASE MB 2.7 ng/mL (0-5.0)
--- NOTE | 2019-03-20 15:55 | NUR ---
H&P PRIMARY CARE PHYSICIAN: [facility]. CHIEF COMPLAINT: cough/sob HISTORY OF PRESENT ILLNESS: This 58-year-old woman, developed cough/sob. Found to have PNA. PAST MEDICAL HISTORY 1. Diabetes mellitus, type 2. 2. Diabetic neuropathy. 3. Stroke with residual left-sided weakness and use of cane. 4 Congestive heart failure, type unknown. 5. Cigarette use. 6. Hyperlipidemia. 7. Degenerative joint disease of the lumbosacral spine. 8. Chronic pain disorder. 9. Peripheral arterial disease secondary to diabetes. 10. Gangrenous toe of 2nd digit, right foot, status post amputation. 11.EMILEE PAST SURGICAL HISTORY: Back, right foot 2nd toe amputation ALLERGIES: PER ELECTRONIC MEDICAL RECORD. FAMILY AND SOCIAL HISTORY: The patient is . She has 3 children. No alcohol or illicits. She smokes intermittently. MEDICATIONS: Per electronic medical record. REVIEW OF SYSTEMS: Denies any fever, chills, sweats, nausea, vomiting, diarrhea, headache, chest pain, vision changes, skin rash. PHYSICAL EXAMINATION VITAL SIGNS: Have been reviewed. GENERAL: A tired-appearing woman resting in bed. HEENT: Anicteric. CARDIOVASCULAR: Normal S1 and S2. LUNGS: reduced breath sounds at bases ABDOMEN: Soft, nontender, nondistended. EXTREMITIES: 1+ leg edema b/l; right foot 2nd toe absent, surgical site healed, but tender at site; no erythema SKIN: Dry. PSYCHIATRIC: Flat affect. NEUROLOGIC: Alert and oriented x3. Moving all extremities. LABS: Reviewed. MEDICATIONS: Reviewed. ASSESSMENT: This is a 58-year-old woman. Left PNA HLD DM2 ANxiey d/o PAD COPD EMILEE vs CKD PLAN IV abx antitussives f/u cx restart insulin; ADA diet hba1c/lipids lovenox/pepcid Adam Houser MD, PhD.
[2019-03-20] MEDS ORDERED: GABAPENTIN 400 MG CAP PO PRN (16:00)
[2019-03-20 16:15] LABS: CHOL/HDL RATIO 2.5 (3.0-3.6)
[2019-03-20 16:23] VITALS: BP 100/72
[2019-03-20] MEDS ORDERED: FAMOTIDINE 20 MG TAB PO SCH (16:30)
[2019-03-20] MEDS: DOCUSATE SODIUM 100 MG CAP PO SCH (17:03)
[2019-03-20] MEDS: FAMOTIDINE 20 MG TAB PO SCH (17:03)
[2019-03-20] MEDS: ENOXAPARIN SOD INJ 40 MG/0.4 ML SYR SC SCH (17:03)
--- NOTE | 2019-03-20 18:19 | NUR ---
PT C/O ANXIETY MEDICATED
[2019-03-20] MEDS: ALPRAZOLAM 0.5 MG TAB PO PRN (18:55)
--- NOTE | 2019-03-20 19:20 | NUR ---
Bedside rounds completed with morning nurse. Pt alert and orient to name. Lying in bed HOB 60 degrees. Denies pain at this time. Call farrell within reach. Bed low and locked. Will continue to monitor.
[2019-03-20 20:00] VITALS: BP 97/54
[2019-03-20] MEDS ORDERED: INSULIN GLARGINE 100 UNITS/ML VIAL SQ SCH (21:00)
[2019-03-20] MEDS: GUAIFENESIN/DEXTROMETHORPHAN LIQD 5 ML UDC NG SCH (21:34)
[2019-03-20] MEDS: ATORVASTATIN 20 MG TAB PO SCH (21:34)
[2019-03-20] MEDS: BENZONATATE 100 MG CAP PO SCH (21:34)
[2019-03-20] MEDS: CEFTRIAXONE SOD 1 GM/NS 50 ML 50 ML IV SCH (21:34)
[2019-03-20] MEDS: AZITHROMYCIN 500MG/NS 250 ML 250 ML IV SCH (22:15)
[2019-03-21] VITALS (7 sets, daily range): BP systolic 110–158; BP diastolic 62–91
[2019-03-21] MEDS: ALBUTEROL SULF 0.083% NEB SOLN 3 ML NEB NEB SCH ×5 (03:00→23:26)
[2019-03-21] MEDS: ALBUTEROL/IPRATROPIUM 3 ML NEB NEB SCH ×6 (03:00→23:26)
[2019-03-21] MEDS: ALPRAZOLAM 0.5 MG TAB PO PRN ×3 (03:35→20:30)
[2019-03-21] MEDS: GUAIFENESIN/DEXTROMETHORPHAN LIQD 5 ML UDC NG SCH ×3 (05:35→22:05)
[2019-03-21] MEDS: IPRATROPIUM BROMIDE 0.02% 2.5 ML NEB NEB SCH ×3 (07:00→19:52)
--- NOTE | 2019-03-21 07:30 | NUR ---
PT IN BED SLEEPING NO DISTRES NTOED,DENIES PAIN,O2 2L NC IN PLACE.
[2019-03-21] MEDS: INSULIN REGULAR, HUMAN 100 UNIT/1 ML 3ML VIAL SQ SCH ×4 (08:30→21:00)
[2019-03-21] MEDS: DOCUSATE SODIUM 100 MG CAP PO SCH ×2 (09:12→16:43)
[2019-03-21] MEDS: ROPINIROLE HCL 0.25 MG TAB PO SCH (09:12)
[2019-03-21] MEDS: BENZONATATE 100 MG CAP PO SCH ×3 (09:12→21:00)
[2019-03-21] MEDS: ASPIRIN 81 MG ENTERIC COATED PO SCH (09:13)
[2019-03-21] MEDS: METHYLPREDNISOLONE SOD SUCC 40 MG/ML VIAL 1ML IV SCH ×2 (09:13→21:00)
[2019-03-21] MEDS: FAMOTIDINE 20 MG TAB PO SCH ×2 (09:13→16:42)
--- NOTE | 2019-03-21 13:25 | NUR ---
PT ASSISTED UP TO SHOWER AMBULATED WITH WALKER,TOLERTED WELL,NO SOB NOTED.
--- NOTE | 2019-03-21 14:40 | NUR ---
Visit made by the Spiritual Care Department Pastoral Visitor, Cristiana Johnson. PV provided pastoral presence, prayer, communion, hospitality, and supportive listening. Pastoral Visitor informed pt/family of the scope of [employer] and availability. WILLA SORENSON Payroll And Benefits Analyst Spiritual Care Department O: [phone] Pager: [phone] ([phone] number calling from)
[2019-03-21] MEDS: ENOXAPARIN SOD INJ 40 MG/0.4 ML SYR SC SCH (16:43)
--- NOTE | 2019-03-21 17:33 | NUR ---
UP IN RECLINER,DENIES PAIN,O2 2L 4 L NC.
--- NOTE | 2019-03-21 18:42 | NUR ---
IM- progress note O/N: no events REVIEW OF SYSTEMS: Denies any fever, chills, sweats, nausea, vomiting, diarrhea, headache, chest pain, vision changes, skin rash. PHYSICAL EXAMINATION VITAL SIGNS: Have been reviewed. GENERAL: A tired-appearing woman resting in bed. HEENT: Anicteric. CARDIOVASCULAR: Normal S1 and S2. LUNGS: reduced breath sounds at bases ABDOMEN: Soft, nontender, nondistended. EXTREMITIES: 1+ leg edema b/l; right foot 2nd toe absent, surgical site healed, but tender at site; no erythema SKIN: Dry. PSYCHIATRIC: Flat affect. NEUROLOGIC: Alert and oriented x3. Moving all extremities. LABS: Reviewed. MEDICATIONS: Reviewed. ASSESSMENT: This is a 58-year-old woman. Left PNA HLD DM2 ANxiey d/o PAD COPD EMILEE vs CKD PLAN IV abx antitussives f/u cx restart insulin; ADA diet hba1c/lipids lovenox/pepcid LDL 136. Control glucose; Hba1c/LDL 8.6/136 Adam Houser MD, PhD.
--- NOTE | 2019-03-21 19:25 | NUR ---
Bedside rounds completed with morning nurse. Pt alert and orient to name. Pt sitting in recliner. Anxious. Instructed to take slow, deep breathes. O2 @4L via NC. Denies pain at this time. Call farrell within reach. Bed low and locked. Will continue to monitor.
--- NOTE | 2019-03-21 20:30 | NUR ---
Admin prn Xanax for anxiety. Call farrell within reach.
[2019-03-21] MEDS: CEFTRIAXONE SOD 1 GM/NS 50 ML 50 ML IV SCH (21:00)
[2019-03-21] MEDS ORDERED: INSULIN GLARGINE 100 UNITS/ML VIAL SQ SCH (21:00)
[2019-03-21] MEDS: ATORVASTATIN 20 MG TAB PO SCH (21:00)
--- NOTE | 2019-03-21 21:31 | NUR ---
Completed bedside rounds with Dr. Houser treatment plan discussed. New order to change Xanax 0.5mg to every 6 hours. CBC and BMP ordered for AM labs. Call farrell within reach.
[2019-03-21] MEDS: AZITHROMYCIN 500MG/NS 250 ML 250 ML IV SCH (22:05)
[2019-03-22] VITALS: BP 157/83
[2019-03-22] MEDS: ALPRAZOLAM 0.5 MG TAB PO PRN ×3 (02:30→15:05)
[2019-03-22] MEDS: IPRATROPIUM BROMIDE 0.02% 2.5 ML NEB NEB SCH ×3 (03:57→13:00)
[2019-03-22] MEDS: ALBUTEROL/IPRATROPIUM 3 ML NEB NEB SCH ×4 (03:57→15:53)
[2019-03-22] MEDS: ALBUTEROL SULF 0.083% NEB SOLN 3 ML NEB NEB SCH ×4 (03:57→15:00)
[2019-03-22 04:00] VITALS: BP 147/67
[2019-03-22] MEDS: GUAIFENESIN/DEXTROMETHORPHAN LIQD 5 ML UDC NG SCH ×2 (06:00→13:21)
[2019-03-22 06:09] LABS: BASOPHILS % 0.1 % (0.0-1.0); HEMATOCRIT 42.7 % (34.2-44.1); HEMOGLOBIN 13.5 g/dL (12.0-16.0); LYMPHOCYTES # (AUTO) 0.9 (1.0-3.2); LYMPHOCYTES % 9.4 % (18.0-39.1); MEAN CORPUSCULAR HEMOGLOBIN 30.5 pg (28-32); MEAN CORPUSCULAR HGB CONC 31.6 g/dL (31-35); MEAN CORPUSCULAR VOLUME 96.6 fL (81-99); MONOCYTES # (AUTO) 0.3 (0.2-0.8); MONOCYTES % 2.9 % (4.4-11.3); NEUTROPHILS # (AUTO) 7.9 (2.1-6.9); NEUTROPHILS % 87.1 % (38.7-80.0); PLATELET COUNT 170 x10e3/uL (140-360); RED BLOOD COUNT 4.42 x10e6/uL (3.6-5.1); RED CELL DISTRIBUTION WIDTH 15.9 % (11.7-14.4)
[2019-03-22 06:23] LABS: ANION GAP 11.3 mmol/L (8-16); CREATININE, SERUM 0.99 mg/dL (0.57-1.11); POTASSIUM 4.3 mmol/L (3.5-5.1)
--- NOTE | 2019-03-22 07:08 | NUR ---
RECEIVED PATIENT RESTING IN RECLINER. NO ACUTE DISTRESS NOTED. CALL LIGHT WITHIN REACH. BED IN THE LOWEST POSITION.
[2019-03-22 07:10] VITALS: BP 135/65
[2019-03-22] MEDS: INSULIN REGULAR, HUMAN 100 UNIT/1 ML 3ML VIAL SQ SCH ×3 (07:30→17:05)
[2019-03-22 07:59] VITALS: BP 135/65
[2019-03-22] MEDS: DOCUSATE SODIUM 100 MG CAP PO SCH ×2 (08:54→17:09)
[2019-03-22] MEDS: BENZONATATE 100 MG CAP PO SCH ×2 (08:54→15:05)
[2019-03-22] MEDS: FAMOTIDINE 20 MG TAB PO SCH ×2 (08:54→17:09)
[2019-03-22] MEDS: ROPINIROLE HCL 0.25 MG TAB PO SCH (08:54)
[2019-03-22] MEDS: ASPIRIN 81 MG ENTERIC COATED PO SCH (08:54)
[2019-03-22] MEDS: METHYLPREDNISOLONE SOD SUCC 40 MG/ML VIAL 1ML IV SCH (08:57)
--- NOTE | 2019-03-22 10:17 | NUR ---
Discharge summary Principal Dx: Left PNA Secondary Dx: HLD DM2 ANxiey d/o PAD COPD EMILEE vs CKD PLAN IV abx antitussives f/u cx restart insulin; ADA diet hba1c/lipids lovenox/pepcid LDL 136. Control glucose; Hba1c/LDL 8.6/136 Cont care; improving; home with antibiotics d/c home f/u pcp 1 week stable d/c>35mins Adam Houser MD, PhD.
[2019-03-22 11:31] VITALS: BP 136/96
[2019-03-22] MEDS ORDERED: TESSALON PERLE100 MG PO (15:01)
[2019-03-22] MEDS ORDERED: PREDNISONE20 MG PO (15:01)
[2019-03-22] MEDS ORDERED: LEVAQUIN500 MG PO (15:01)
[2019-03-22] MEDS ORDERED: Guaifenesin/Dextromethorphan NG (15:01)
[2019-03-22 15:57] VITALS: BP 130/88
[2019-03-22] MEDS: ENOXAPARIN SOD INJ 40 MG/0.4 ML SYR SC SCH (17:09)
--- NOTE | 2019-03-22 18:12 | NUR ---
IMM LETTER EXPLAINED TO THE PT. VERBALIZED UNDERSTANDING. IMM LETTER SIGNED. COPY TO PT AND COPY TO CHART.
--- NOTE | 2019-03-22 18:21 | NUR ---
RECEIVED DC ORDER FROM MD. PATIENT IS IN STABLE CONDITION. IV LINE TO LEFT HAND DCD WITH TIP INTACT, PRESSURE APPLIED TO SITE, NO BLEEDING NOTED. DISCHARGE TEACHING PROVIDED TO PATIENT, SHE VERBALIZED UNDERSTANDING. DISCHARGE FOLDER AND PERSONAL ITEMS ON HAND. PATIENT ACCOMPANIED TO PRIVATE AUTO VIA WHEELCHAIR BY STAFF.
== END 2019-03-22 18:21 | disposition home or self-care (01) | DRG 194 ==
LOC: ER 18:22 → ERHOLD 22:12 → MED/SURG3 23:33
PROVIDERS: ADMIT Internal Medicine; ATTEND Internal Medicine
DX: J18.9 Pneumonia, unspecified organism (principal); N17.9 Acute kidney failure, unspecified; J44.0 Chronic obstructive pulmonary disease with (acute) lower respiratory infection; J44.1 Chronic obstructive pulmonary disease with (acute) exacerbation; I13.0 Hypertensive heart and chronic kidney disease with heart failure and stage 1 through stage 4 chronic kidney disease, or unspecified chronic kidney disease; I50.9 Heart failure, unspecified; E78.5 Hyperlipidemia, unspecified; E11.9 Type 2 diabetes mellitus without complications; F41.9 Anxiety disorder, unspecified; E11.22 Type 2 diabetes mellitus with diabetic chronic kidney disease; N18.9 Chronic kidney disease, unspecified; Z79.4 Long term (current) use of insulin; E11.51 Type 2 diabetes mellitus with diabetic peripheral angiopathy without gangrene
CPT/HCPCS: 36415; 71045; 80048; 80053; 80061; 81001; 82550; 82553; 82948; 83036; 83880; 84484; 85025; 87040; 93005; 94640; 99284; J0456; J0696; J1650; J1815; J2920; J2930